=== PATIENT | male | born 1970 | race Caucasian/White ===

== ENCOUNTER 2017-10-11 11:23 | Emergency (ER) | payer MEDICARE, MEDICAID ==
[2017-10-11] MEDS: KETOROLAC 60 MG/2 ML INJ. IM (12:37)
== END 2017-10-11 13:27 | disposition home or self-care (01) ==
LOC: ER 11:23
DX: S32.018A Other fracture of first lumbar vertebra, initial encounter for closed fracture (principal); S32.029A Unspecified fracture of second lumbar vertebra, initial encounter for closed fracture; M54.6 Pain in thoracic spine; I10 Essential (primary) hypertension; F20.9 Schizophrenia, unspecified; W18.39XA Other fall on same level, initial encounter; Y93.89 Activity, other specified; Y99.8 Other external cause status; Y92.89 Other specified places as the place of occurrence of the external cause
CPT/HCPCS: 72128; 72131; 96372; 99284-25; J1885

== ENCOUNTER 2018-08-31 21:28 | Inpatient (IN) | payer MEDICARE, MEDICAID ==
[~2018-08-31] VITALS: Ht 185.4 cm; Wt 103.6 kg
[~2018-08-31 21:28] MED LIST: HYDR-3164 PO; IBUP-1007 PO; LIDODERM 5% TOP
[2018-08-31] MEDS ORDERED: IV NORMAL SALINE 500ML BAG 500 ML IV ONE (22:00)
[2018-08-31] MEDS ORDERED: LIDOCAINE 1%/EPI 1:100,000 20 ML VIAL. INJ ONE (22:00)
[2018-08-31 22:27] LABS: BASO % 0 % (0-3); EOS # 0.1 x10^3/uL (0.0-0.7); EOS % 1 % (0-3); HEMATOCRIT 41.1 % (39.0-53.0); HEMOGLOBIN 14.6 g/dL (13.0-17.5); LYMPH # 1.9 x10^3/uL (1.0-4.8); LYMPH % 23 % (24-48); MEAN CORPUSCULAR HEMOGLOBIN 33 pg (25-35); MEAN CORPUSCULAR HGB CONC 36 g/dL (31-37); MEAN CORPUSCULAR VOLUME 93 fL (79-100); MONO # 0.7 x10^3/uL (0.0-1.1); MONO % 9 % (0-9); NEUT # 5.5 x10^3uL (1.8-7.7); NEUT % 67 % (31-73); PLATELET COUNT 211 x10^3/uL (140-400); RED BLOOD COUNT 4.43 x10^6/uL (4.30-5.70); RED CELL DISTRIBUTION WIDTH 13.5 % (11.5-14.5); WHITE BLOOD COUNT 8.2 x10^3/uL (4.0-11.0)
[2018-08-31 22:34] LABS: CREATININE 1.2 mg/dL (0.7-1.3); GFR 64.1; POTASSIUM 3.6 mmol/L (3.5-5.1)
[2018-08-31 22:40] LABS: ALBUMIN 3.5 g/dL (3.4-5.0); ALBUMIN/GLOBULIN RATIO 0.9 (1.0-1.7); TOTAL BILIRUBIN 0.3 mg/dL (0.2-1.0); TOTAL PROTEIN 7.2 g/dL (6.4-8.2)
[2018-08-31 22:42] LABS: BILIRUBIN,URINE NEGATIVE (NEG); CLARITY,URINE CLEAR; COLOR,URINE YELLOW; NITRITE,URINE NEGATIVE (NEG); PH,URINE 5.5; PROTEIN,URINE NEGATIVE (NEG-TRACE); UROBILINOGEN,URINE 0.2 mg/dL (0.2 mg/dL)
[2018-08-31 22:48] LABS: BACTERIA,URINE 0 /HPF (0-FEW); RBC,URINE OCC /HPF (0-2)
[2018-08-31 22:49] LABS: SQUAMOUS EPITHELIAL CELL,UR FEW /LPF
--- NOTE | 2018-08-31 22:55 | RAD ---
CT scan of the head without contrast 08/31/2018 Clinical History: Fall with head pain. Technique: Unenhanced, contiguous, 5 mm axial sections were obtained through the head. One or more of the following individualized dose reduction techniques were utilized for this study: 1. Automated exposure control. 2. Adjustment of the mA and/or kV according to patient size. 3. Use of iterative reconstruction technique. Findings: There is generalized parenchymal atrophy. Areas of decreased attenuation are seen within the periventricular and subcortical white matter of both cerebral hemispheres consistent with areas of small vessel ischemic disease. No acute parenchymal abnormality is seen. No extra-axial fluid collection is noted. No skull fracture is seen. Impression: No acute intracranial abnormality is seen. CT scan of the cervical spine without contrast 08/31/2018 Clinical history: Neck pain post fall. Technique: Unenhanced, contiguous, 0.625 mm axial sections were obtained through the cervical spine. Axial, coronal and sagittal reconstructed images were obtained. One or more of the following individualized dose reduction techniques were utilized for this study: 1. Automated exposure control. 2. Adjustment of the mA and/or kV according to patient size. 3. Use of iterative reconstruction technique. Findings: Sagittal and coronal reconstructed images demonstrate slight reversal of normal cervical lordosis. Degenerative changes consisting of disc space narrowing, vertebral endplate sclerosis and minimal to mild anterior vertebral body osteophyte formation are seen involving mid and lower cervical disc spaces. No fracture or subluxation cervical vertebrae seen. Degenerative changes are seen involving the uncovertebral and facet joints throughout the cervical disc spaces. Impression: No fracture or subluxation of the cervical vertebra is identified. Electronically signed by: Wayne Rodriguez MD (08/31/2018 10:51 PM) [facility]
--- NOTE | 2018-08-31 23:58 | PHYS DOC ---
Past Medical History Past Medical History: Depression, Hypertension, Schizophrenia Additional Past Medical Histor: PSORIASIS, INSOMNIA Past Surgical History: Other Additional Past Surgical Histo: DENTAL SX Alcohol Use: None Drug Use: None Adult General Chief Complaint Chief Complaint: SYNCOPE HPI HPI 48 y/o male presents to ER following a syncope episode. Patient reports he lives at an assisted living facility and he stood up and had episode where he became lightheaded and dizzy and passed out. Patient states he did wake up on the floor with a laceration to the top of his head. Patient is uncertain as to length of time that he was unconscious. On arrival to ER patient is alert and oriented with complaints of mild headache. Patient at this time is denying any dizziness. Patient denies nausea. Patient does report he has history of orthostatic hypotension. He reports he does believe he has had tetanus up-to-date within the past 5 years. Review of Systems Review of Systems Constitutional: Denies fever or chills [] Eyes: Denies change in visual acuity, redness, or eye pain [] HENT: Denies nasal congestion or sore throat [] Respiratory: Denies cough or shortness of breath [] Cardiovascular: No additional information not addressed in HPI [] GI: Denies abdominal pain, nausea, vomiting, bloody stools or diarrhea [] : Denies dysuria or hematuria [] Musculoskeletal: Denies back pain or joint pain [] Integument: Denies rash or skin lesions [] Neurologic: Denies headache, focal weakness or sensory changes [] Endocrine: Denies polyuria or polydipsia [] All other systems were reviewed and found to be within normal limits, except as documented in this note. Current Medications Current Medications Current Medications Medications (Trade) Dose Ordered Sig/Jordan Start Time Stop Time Status Last Admin Dose Admin Lidocaine/ Epinephrine (LIDOCAINE 1%-EPI 1:100,000 Multi-Dose) 20 ml 1X ONCE 08/31/18 22:00 08/31/18 22:01 DC Sodium Chloride 500 ml @ 500 mls/hr 1X ONCE 08/31/18 22:00 08/31/18 22:59 DC 08/31/18 22:30 500 MLS/HR Allergies Allergies Allergies Coded Allergies Type Severity Reaction Last Updated Verified No Known Drug Allergies 10/11/17 No Physical Exam Physical Exam Constitutional: Well developed, well nourished, no acute distress, non-toxic appearance. [] HENT: Normocephalic, atraumatic, bilateral external ears normal, oropharynx moist, no oral exudates, nose normal. [] Eyes: PERRLA, EOMI, conjunctiva normal, no discharge. [] Neck: Normal range of motion, no tenderness, supple, no stridor. [] Cardiovascular:Heart rate regular rhythm, no murmur [] Lungs & Thorax: Bilateral breath sounds clear to auscultation [] Abdomen: Bowel sounds normal, soft, no tenderness, no masses, no pulsatile masses. [] Skin: Warm, dry, no erythema, no rash. [] Back: No tenderness, no CVA tenderness. [] Extremities: No tenderness, no cyanosis, no clubbing, ROM intact, no edema. [] Neurologic: Alert and oriented X 3, normal motor function, normal sensory function, no focal deficits noted. [] Psychologic: Affect normal, judgement normal, mood normal. [] Current Patient Data Vital Signs Vital Signs Date Time Temp Pulse Resp B/P (MAP) Pulse Ox O2 Delivery O2 Flow Rate FiO2 08/31/18 21:30 98.4 66 21 133/94 (107) 98 Room Air 98.4 Lab Values Laboratory Tests Test 08/31/18 22:15 08/31/18 22:20 White Blood Count 8.2 x10^3/uL (4.0-11.0) Red Blood Count 4.43 x10^6/uL (4.30-5.70) Hemoglobin 14.6 g/dL (13.0-17.5) Hematocrit 41.1 % (39.0-53.0) Mean Corpuscular Volume 93 fL (79-100) Mean Corpuscular Hemoglobin 33 pg (25-35) Mean Corpuscular Hemoglobin Concent 36 g/dL (31-37) Red Cell Distribution Width 13.5 % (11.5-14.5) Platelet Count 211 x10^3/uL (140-400) Neutrophils (%) (Auto) 67 % (31-73) Lymphocytes (%) (Auto) 23 % (24-48) L Monocytes (%) (Auto) 9 % (0-9) Eosinophils (%) (Auto) 1 % (0-3) Basophils (%) (Auto) 0 % (0-3) Neutrophils # (Auto) 5.5 x10^3uL (1.8-7.7) Lymphocytes # (Auto) 1.9 x10^3/uL (1.0-4.8) Monocytes # (Auto) 0.7 x10^3/uL (0.0-1.1) Eosinophils # (Auto) 0.1 x10^3/uL (0.0-0.7) Basophils # (Auto) 0.0 x10^3/uL (0.0-0.2) Sodium Level 140 mmol/L (136-145) Potassium Level 3.6 mmol/L (3.5-5.1) Chloride Level 103 mmol/L (98-107) Carbon Dioxide Level 28 mmol/L (21-32) Anion Gap 9 (6-14) Blood Urea Nitrogen 12 mg/dL (8-26) Creatinine 1.2 mg/dL (0.7-1.3) Estimated GFR (Cockcroft-Gault) 64.1 BUN/Creatinine Ratio 10 (6-20) Glucose Level 101 mg/dL (70-99) H Calcium Level 9.0 mg/dL (8.5-10.1) Total Bilirubin 0.3 mg/dL (0.2-1.0) Aspartate Amino Transferase (AST) 18 U/L (15-37) Alanine Aminotransferase (ALT) 31 U/L (16-63) Alkaline Phosphatase 113 U/L (46-116) Troponin I Quantitative < 0.017 ng/mL (0.000-0.055) Total Protein 7.2 g/dL (6.4-8.2) Albumin 3.5 g/dL (3.4-5.0) Albumin/Globulin Ratio 0.9 (1.0-1.7) L Urine Collection Type Unknown Urine Color Yellow Urine Clarity Clear Urine pH 5.5 Urine Specific [place] 1.015 Urine Protein Negative mg/dL (NEG-TRACE) Urine Glucose (UA) Negative mg/dL (NEG) Urine Ketones (Stick) Negative mg/dL (NEG) Urine Blood Negative (NEG) Urine Nitrite Negative (NEG) Urine Bilirubin Negative (NEG) Urine Urobilinogen Dipstick 0.2 mg/dL (0.2 mg/dL) Urine Leukocyte Esterase Trace (NEG) Urine RBC Occ /HPF (0-2) Urine WBC 5-10 /HPF (0-4) Urine Squamous Epithelial Cells Few /LPF Urine Bacteria 0 /HPF (0-FEW) Urine Mucus Mod /LPF Laboratory Tests 08/31/18 22:15 Laboratory Tests 08/31/18 22:15 EKG EKG EKG obtained 08/31/18 at [address] Heredia Sinus rhythm Rate 76 No STEMI Radiology/Procedures Radiology/Procedures PROCEDURE: CT HEAD AND CERVICAL SPINE WO CT scan of the head without contrast 08/31/2018 Clinical History: Fall with head pain. Technique: Unenhanced, contiguous, 5 mm axial sections were obtained through the head. One or more of the following individualized dose reduction techniques were utilized for this study: 1. Automated exposure control. 2. Adjustment of the mA and/or kV according to patient size. 3. Use of iterative reconstruction technique. Findings: There is generalized parenchymal atrophy. Areas of decreased attenuation are seen within the periventricular and subcortical white matter of both cerebral hemispheres consistent with areas of small vessel ischemic disease. No acute parenchymal abnormality is seen. No extra-axial fluid collection is noted. No skull fracture is seen. Impression: No acute intracranial abnormality is seen. CT scan of the cervical spine without contrast 08/31/2018 Clinical history: Neck pain post fall. Technique: Unenhanced, contiguous, 0.625 mm axial sections were obtained through the cervical spine. Axial, coronal and sagittal reconstructed images were obtained. One or more of the following individualized dose reduction techniques were utilized for this study: 1. Automated exposure control. 2. Adjustment of the mA and/or kV according to patient size. 3. Use of iterative reconstruction technique. Findings: Sagittal and coronal reconstructed images demonstrate slight reversal of normal cervical lordosis. Degenerative changes consisting of disc space narrowing, vertebral endplate sclerosis and minimal to mild anterior vertebral body osteophyte formation are seen involving mid and lower cervical disc spaces. No fracture or subluxation cervical vertebrae seen. Degenerative changes are seen involving the uncovertebral and facet joints throughout the cervical disc spaces. Impression: No fracture or subluxation of the cervical vertebra is identified. Electronically signed by: Wayne Rodriguez MD (08/31/2018 10:51 PM) [facility] DICTATED and SIGNED BY: WAYNE RODRIGUEZ MD DATE: 08/31/18 2247 Laceration Repair by ca: [id number] Anesthesia: 3 mL 1% lidocaine w/epi locally Location: Vertex crown of head vertical laceration Foreign body: None detected after copious irrigation and exploration Technique: #4 Carloz Complexity: No subcutaneous sutures/edge excision Post Closure Length: 5 cm Patient's bleeding was easily controlled in the department and there is no indication of anemia. No evidence of compartment syndrome, neurologic injury, vascular injury, open joint, tendon laceration, or foreign body. Patient is appropriate for outpatient follow up. 48 hour wound check. Scar minimization instructions given. Course & Med Decision Making Course & Med Decision Making Pertinent Labs and Imaging studies reviewed. (See chart for details) Pt was evaluated in the ER following a syncope episode at the assisted living facility he resides in. Patient had mild headache at time of arrival. Patient reports he did lose consciousness during syncope episode and woke on the floor. Patient had 5 cm on the vertex crown of his head- wound was thoroughly cleansed with no foreign bodies found and wound repair done with 4 carloz. Patient tolerated procedure well. Patient reports he does not have 24-hour assistance where he lives and so with syncope episode and head injury discussed admission and he is agreeable with this plan for further monitoring. Patient remains alert and oriented 3. Patient's head and C-spine CT were negative for acute findings. Patient has had no additional syncope episodes or complaints of dizziness while in the ER. Will admit to hospitalist services for further care and monitoring. Patient will be admitted to Med/Tele. Dragon Disclaimer Dragon Disclaimer This electronic medical record was generated, in whole or in part, using a voice recognition dictation system. Departure Departure Impression: Primary Impression: Syncope Additional Impression: Head injury consultation Disposition: ADMITTED INPATIENT Admitting Physician: Wali Talavera Condition: STABLE Referrals: KORY BAIRES (PCP) Problem Qualifiers MERISSA ZAFAR TELEVISION PRODUCTION CLERK Aug 31, 2018 23:58
[2018-09-01 00:15] VITALS: BP 126/82
[2018-09-01] MEDS ORDERED: LOPE2TAB27 PO (01:00)
[2018-09-01] MEDS ORDERED: ACETAMINOPHEN 325 MG TABLET. PO PRN ×2 (01:00→09:00)
[2018-09-01] MEDS ORDERED: THIO10CA2 PO (01:00)
[2018-09-01] MEDS ORDERED: ATOR40TA59 PO (01:00)
[2018-09-01] MEDS ORDERED: THIO5CAP2 PO (01:00)
[2018-09-01] MEDS ORDERED: LORA-434 PO (01:00)
[2018-09-01] MEDS ORDERED: KETO120S2 TP (01:00)
[2018-09-01] MEDS ORDERED: VENL150C PO (01:00)
[2018-09-01] MEDS ORDERED: MAGN400O7 PO (01:00)
[2018-09-01] MEDS ORDERED: ZOLP5TAB PO (01:00)
[2018-09-01] MEDS ORDERED: HYDR25CA PO (01:00)
[2018-09-01] MEDS ORDERED: ACET325T9 PO (01:00)
[2018-09-01] MEDS ORDERED: AMLO2.5T2 PO (01:00)
[2018-09-01 03:15] VITALS: BP 114/81
--- NOTE | 2018-09-01 06:28 | EKG ---
[facility] [address] [place] [address] Test Date: 2018-08-31 Test Time: 21:38:24 Pat Name: ERICKA TRISTAN Department: Room: Gender: Husbandry Person: : 1970 Requested By: MERISSA ZAFAR Order Number: [id number] Reading MD: Measurements Intervals [place] Rate: 76 P: 48 NE: 156 QRS: 57 QRSD: 98 T: 42 QT: 384 QTc: 436 Interpretive Statements SINUS RHYTHM NO SPECIFIC ECG ABNORMALITIES RI6.01 No previous ECG available for comparison
[2018-09-01 07:36] VITALS: BP 127/82
--- NOTE | 2018-09-01 08:07 | RAD ---
Chest radiograph 08/31/2018 9:47 PM INDICATION: Fall, syncope COMPARISON: None available TECHNIQUE: Portable upright frontal view of the chest is provided. FINDINGS: The cardiomediastinal silhouette is within normal limits. There are no pleural effusions. There is no pulmonary vascular congestion. There is no pneumothorax. The lungs are clear. No significant osseous abnormality is identified. IMPRESSION: No acute cardiopulmonary process. Electronically signed by: Sarah Gilman MD (09/01/2018 8:03 AM) [facility]
[2018-09-01] MEDS ORDERED: HYDROcodone/APAP 5/325MG 1 TAB TABLET PO PRN (09:00)
[2018-09-01] MEDS ORDERED: LIDOCAINE (700MG/PATCH) PATCH. TD PRN (09:00)
[2018-09-01] MEDS ORDERED: THIOTHIXENE 10 MG PO SCH (09:00)
[2018-09-01] MEDS ORDERED: LOPERAMIDE 2 MG CAPSULE PO PRN (09:15)
[2018-09-01] MEDS ORDERED: IBUPROFEN 600 MG TABLET. PO PRN (09:15)
[2018-09-01] MEDS ORDERED: hydrOXYzine PAMOATE 25 MG CAPSULE PO PRN (09:15)
[2018-09-01] MEDS ORDERED: MAGNESIUM HYDROXIDE 2,400 MG/30 ML ORAL.SUSP. PO SCH (10:00)
[2018-09-01] MEDS ORDERED: LORazepam 1 MG TABLET PO SCH (10:00)
[2018-09-01] MEDS: VENLAFAXINE 50 MG TABLET. PO SCH ×2 (10:14→15:40)
[2018-09-01 11:30] VITALS: BP_SYST 119; BP_SYST 125; BP_SYST 127; BP_DIAS 79; BP_DIAS 85; BP_DIAS 97
[2018-09-01] MEDS ORDERED: IBUPROFEN 200 MG TABLET. PO PRN (12:46)
--- NOTE | 2018-09-01 13:52 | PDOC1 ---
History and Physical Date of Admission Date of Admission DATE: 09/01/18 TIME: 13:45 Identification/Chief Complaint Chief Complaint Passed out in assisted living Source Source: Caregiver, Chart review, Patient History of Present Illness History of Present Illness 78-year-old male who is a long-term resident in assisted living, passed out while walking from his room to the bathroom. He was not straining, he was not eating. No known significant cardiac history including arrhythmias. He claims has happened before and was diagnosed with orthostatic hypotension. Blood pressure anywhere between 100 to 120s. Orthostatic first set is negative. He's feeling well and wants to go back to a L. I am okay with that. I did order echocardiogram most likely would be okay. If he doesn't want to wait for it that he can go back to a L with no change in meds except for me recommending to hold Norvasc 2.5 once a day especially with a history of orthostatic hypotension and syncope No arrhythmias overnight No chest pain. He did fall and hit the back of his head but was able to get up. There were no reports of seizure-like activity consults None PRoc; Echo can be done as OP if he wishes though Pt seen and examined, discussed with АНДРЕЙ Abdul Past Medical History Cardiovascular: HTN, Hyperlipidemia Past Surgical History Past Surgical History: No pertinent history Family History Family History: Family History Unknown Social History Smoke: No ALCOHOL: none Drugs: None Current Problem List Problem List Problems Medical Problems: (1) Head injury consultation Status: Acute (2) Syncope Status: Acute Current Medications Current Medications Current Medications Sodium Chloride 500 ml @ 500 mls/hr 1X ONCE IV Last administered on at 22:30; Start 08/31/18 at 22:00; Stop 08/31/18 at 22:59; Status DC Lidocaine/ Epinephrine (LIDOCAINE 1%-EPI 1:100,000 Multi-Dose) 20 ml 1X ONCE INJ Last administered on 08/31/18at 21:45; Start 08/31/18 at 22:00; Stop at 22:01; Status DC Acetaminophen (Tylenol) 650 mg PRN Q4HRS PRN PO MILD PAIN; Start 09/01/18 at 01 :00; Stop 09/02/18 at 00:59 Acetaminophen (Tylenol) 650 mg PRN Q6HRS PRN PO MILD PAIN; Start 09/01/18 at 09 :00 Atorvastatin Calcium (Lipitor) 40 mg HS PO ; Start 09/01/18 at 21:00 Acetaminophen/ Hydrocodone Bitart (Lortab 5/325) 1 tab PRN Q6HRS PRN PO MODERATE-SEVERE PAIN; Start 09/01/18 at 09:00 Lorazepam (Ativan) 1 mg BID PO Last administered on 09/01/18at 10:14; Start at 10:00 Magnesium Hydroxide (Milk Of Magnesia) 2,400 mg DAILY PO ; Start 09/01/18 at 10: 00 Zolpidem Tartrate (Ambien) 5 mg HS PO ; Start 09/01/18 at 21:00 Hydroxyzine Pamoate (Vistaril) 25 mg PRN Q6HRS PRN PO ANXIETY/AGITATION; Start 09/01/18 at 09:15 Ibuprofen (Motrin) 600 mg PRN Q6HRS PRN PO INFLAMMATION; Start 09/01/18 at 09: 15; Stop 09/01/18 at 12:46; Status DC Loperamide HCl (Imodium) 2 mg PRN Q15MIN PRN PO DIARRHEA; Start 09/01/18 at 09: 15 Non-Formulary Medication (Thiothixene ) 5 mg HS PO ; Start 09/01/18 at 21:00 Non-Formulary Medication (Thiothixene ) 10 mg DAILY PO ; Start 09/01/18 at 09:00 ; Stop 09/01/18 at 13:33; Status DC Venlafaxine HCl (Effexor) 100 mg TID PO Last administered on 09/01/18at 10:14; Start 09/01/18 at 10:00 Lidocaine (Lidoderm) 1 patch PRN DAILY PRN TD PAIN; Start 09/01/18 at 09:00 Ibuprofen (Motrin) 600 mg PRN Q6HRS PRN PO INFLAMMATION; Start 09/01/18 at 12: 46 Non-Formulary Medication (Thiothixene ) 10 mg DAILY PO ; Start 09/01/18 at 14:00 Active Scripts Active Ibuprofen 600 Mg Tablet 600 Mg PO PRN Q6HRS PRN take with food or milk [lidoderm 5%patch] 1 Patch TOP PRN Q12HRS PRN apply to area of pain, remove after 12 hours and can replace after 12 hours off. [place] 5-325 Tablet (Acetaminophen/Hydrocodone Bitart) 1 Each Tablet 1-2 Each PO PRN Q6HRS PRN as needed for pain Reported Vistaril (Hydroxyzine Pamoate) 25 Mg Capsule 25 Mg PO PRN Q4HRS PRN Tylenol (Acetaminophen) 325 Mg Tablet 650 Mg PO PRN Q6HRS PRN Thiothixene 5 Mg Capsule 5 Mg PO HS Thiothixene 10 Mg Capsule 10 Mg PO DAILY Norvasc (Amlodipine Besylate) 2.5 Mg Tablet 2.5 Mg PO DAILY Milk Of Magnesia (Magnesium Hydroxide) 400 Mg/5 Ml Oral.susp 30 Ml PO DAILY Loperamide (Loperamide Hcl) 2 Mg Tablet 2 Mg PO DAILY Ketoconazole 120 Ml Shampoo 120 Ml TP TWICE WEEKLY Effexor Xr (Venlafaxine Hcl) 150 Mg Cap.er.24h 300 Mg PO DAILY Atorvastatin Calcium 40 Mg Tablet 40 Mg PO HS Ativan (Lorazepam) 1 Mg Tablet 1 Mg PO BID Ambien (Zolpidem Tartrate) 5 Mg Tablet 5 Mg PO HS Allergies Allergies: Coded Allergies: No Known Drug Allergies (Unverified , 10/11/17) ROS Review of System As per history of present illness, the rest of ROS 14 point negative Physical Exam General: Alert, Oriented X3, Cooperative, No acute distress HEENT: Atraumatic, PERRLA, EOMI Lungs: Clear to auscultation, Normal air movement Heart: S1S2, RRR, no thrills, no rubs, no gallops Cardiovascular: S1, S2 Abdomen: Normal bowel sounds, Soft, No tenderness, No hepatosplenomegaly, No masses Male Genitals Exam: normal genitalia, normal prostate Rectal Exam: not examined PELVIC: Nml ext genitalia Extremities: No clubbing, No cyanosis, No edema, Normal pulses, No tenderness/ swelling Skin: No rashes, No breakdown, No significant lesion Neuro: Normal gait, Normal speech, Strength at 5/5 X4 ext, Normal tone, Sensation intact, Cranial nerves 3-12 NL, Reflexes 2+ Psych/Mental Status: Mental status NL, Mood NL Vitals Vitals Vital Signs Date Time Temp Pulse Resp B/P (MAP) Pulse Ox O2 Delivery O2 Flow Rate FiO2 09/01/18 11:30 108 125/97 (106) 09/01/18 11:30 98.8 18 95 Room Air 98.8 Labs Labs Laboratory Tests Test 08/31/18 22:15 08/31/18 22:20 09/01/18 03:55 09/01/18 07:23 White Blood Count 8.2 x10^3/uL (4.0-11.0) Red Blood Count 4.43 x10^6/uL (4.30-5.70) Hemoglobin 14.6 g/dL (13.0-17.5) Hematocrit 41.1 % (39.0-53.0) Mean Corpuscular Volume 93 fL (79-100) Mean Corpuscular Hemoglobin 33 pg (25-35) Mean Corpuscular Hemoglobin Concent 36 g/dL (31-37) Red Cell Distribution Width 13.5 % (11.5-14.5) Platelet Count 211 x10^3/uL (140-400) Neutrophils (%) (Auto) 67 % (31-73) Lymphocytes (%) (Auto) 23 % (24-48) Monocytes (%) (Auto) 9 % (0-9) Eosinophils (%) (Auto) 1 % (0-3) Basophils (%) (Auto) 0 % (0-3) Neutrophils # (Auto) 5.5 x10^3uL (1.8-7.7) Lymphocytes # (Auto) 1.9 x10^3/uL (1.0-4.8) Monocytes # (Auto) 0.7 x10^3/uL (0.0-1.1) Eosinophils # (Auto) 0.1 x10^3/uL (0.0-0.7) Basophils # (Auto) 0.0 x10^3/uL (0.0-0.2) Sodium Level 140 mmol/L (136-145) Potassium Level 3.6 mmol/L (3.5-5.1) Chloride Level 103 mmol/L (98-107) Carbon Dioxide Level 28 mmol/L (21-32) Anion Gap 9 (6-14) Blood Urea Nitrogen 12 mg/dL (8-26) Creatinine 1.2 mg/dL (0.7-1.3) Estimated GFR (Cockcroft-Gault) 64.1 BUN/Creatinine Ratio 10 (6-20) Glucose Level 101 mg/dL (70-99) Calcium Level 9.0 mg/dL (8.5-10.1) Total Bilirubin 0.3 mg/dL (0.2-1.0) Aspartate Amino Transf (AST/SGOT) 18 U/L (15-37) Alanine Aminotransferase (ALT/SGPT) 31 U/L (16-63) Alkaline Phosphatase 113 U/L (46-116) Troponin I Quantitative < 0.017 ng/mL (0.000-0.055) < 0.017 ng/mL (0.000-0.055) < 0.017 ng/mL (0.000-0.055) Total Protein 7.2 g/dL (6.4-8.2) Albumin 3.5 g/dL (3.4-5.0) Albumin/Globulin Ratio 0.9 (1.0-1.7) Urine Collection Type Unknown Urine Color Yellow Urine Clarity Clear Urine pH 5.5 Urine Specific [place] 1.015 Urine Protein Negative mg/dL (NEG-TRACE) Urine Glucose (UA) Negative mg/dL (NEG) Urine Ketones (Stick) Negative mg/dL (NEG) Urine Blood Negative (NEG) Urine Nitrite Negative (NEG) Urine Bilirubin Negative (NEG) Urine Urobilinogen Dipstick 0.2 mg/dL (0.2 mg/dL) Urine Leukocyte Esterase Trace (NEG) Urine RBC Occ /HPF (0-2) Urine WBC 5-10 /HPF (0-4) Urine Squamous Epithelial Cells Few /LPF Urine Bacteria 0 /HPF (0-FEW) Urine Mucus Mod /LPF Laboratory Tests Test 08/31/18 22:15 08/31/18 22:20 09/01/18 03:55 09/01/18 07:23 White Blood Count 8.2 x10^3/uL (4.0-11.0) Red Blood Count 4.43 x10^6/uL (4.30-5.70) Hemoglobin 14.6 g/dL (13.0-17.5) Hematocrit 41.1 % (39.0-53.0) Mean Corpuscular Volume 93 fL (79-100) Mean Corpuscular Hemoglobin 33 pg (25-35) Mean Corpuscular Hemoglobin Concent 36 g/dL (31-37) Red Cell Distribution Width 13.5 % (11.5-14.5) Platelet Count 211 x10^3/uL (140-400) Neutrophils (%) (Auto) 67 % (31-73) Lymphocytes (%) (Auto) 23 % (24-48) Monocytes (%) (Auto) 9 % (0-9) Eosinophils (%) (Auto) 1 % (0-3) Basophils (%) (Auto) 0 % (0-3) Neutrophils # (Auto) 5.5 x10^3uL (1.8-7.7) Lymphocytes # (Auto) 1.9 x10^3/uL (1.0-4.8) Monocytes # (Auto) 0.7 x10^3/uL (0.0-1.1) Eosinophils # (Auto) 0.1 x10^3/uL (0.0-0.7) Basophils # (Auto) 0.0 x10^3/uL (0.0-0.2) Sodium Level 140 mmol/L (136-145) Potassium Level 3.6 mmol/L (3.5-5.1) Chloride Level 103 mmol/L (98-107) Carbon Dioxide Level 28 mmol/L (21-32) Anion Gap 9 (6-14) Blood Urea Nitrogen 12 mg/dL (8-26) Creatinine 1.2 mg/dL (0.7-1.3) Estimated GFR (Cockcroft-Gault) 64.1 BUN/Creatinine Ratio 10 (6-20) Glucose Level 101 mg/dL (70-99) Calcium Level 9.0 mg/dL (8.5-10.1) Total Bilirubin 0.3 mg/dL (0.2-1.0) Aspartate Amino Transf (AST/SGOT) 18 U/L (15-37) Alanine Aminotransferase (ALT/SGPT) 31 U/L (16-63) Alkaline Phosphatase 113 U/L (46-116) Troponin I Quantitative < 0.017 ng/mL (0.000-0.055) < 0.017 ng/mL (0.000-0.055) < 0.017 ng/mL (0.000-0.055) Total Protein 7.2 g/dL (6.4-8.2) Albumin 3.5 g/dL (3.4-5.0) Albumin/Globulin Ratio 0.9 (1.0-1.7) Urine Collection Type Unknown Urine Color Yellow Urine Clarity Clear Urine pH 5.5 Urine Specific [place] 1.015 Urine Protein Negative mg/dL (NEG-TRACE) Urine Glucose (UA) Negative mg/dL (NEG) Urine Ketones (Stick) Negative mg/dL (NEG) Urine Blood Negative (NEG) Urine Nitrite Negative (NEG) Urine Bilirubin Negative (NEG) Urine Urobilinogen Dipstick 0.2 mg/dL (0.2 mg/dL) Urine Leukocyte Esterase Trace (NEG) Urine RBC Occ /HPF (0-2) Urine WBC 5-10 /HPF (0-4) Urine Squamous Epithelial Cells Few /LPF Urine Bacteria 0 /HPF (0-FEW) Urine Mucus Mod /LPF VTE Prophylaxis Ordered VTE Prophylaxis Devices: Yes VTE Pharmacological Prophylaxi: Yes Assessment/Plan Assessment/Plan Syncope, differentials include vasovagal/common faint-so far no evidence of arrhythmias, no seizure-like activity History of orthostatic hypotension-first set orthostatic is negative. [place] resident PLAN: I recommend holding Norvasc 2.5 I did recommend echo-unsure if he will stay for it Otherwise can go back to a L on discharge once echo done and is read as normal BRYAN MACKAY MD Sep 01, 2018 13:52
--- NOTE | 2018-09-01 13:54 | PDOC3 ---
Discharge Summary Visit Information Date of Admission: Aug 31, 2018 Date of Discharge: Sep 01, 2018 Admitting Diagnosis Comment: Syncope/differentials include, vasovagal-no evidence of arrhythmias or seizure- like activity [place] resident [place] Hx orthostatic hypotension Final Diagnosis Problems Medical Problems: (1) Head injury consultation Status: Acute (2) Syncope Status: Acute Brief Hospital Course Allergies Allergies Coded Allergies Type Severity Reaction Last Updated Verified No Known Drug Allergies 10/11/17 No Vital Signs Vital Signs Date Time Temp Pulse Resp B/P (MAP) Pulse Ox O2 Delivery O2 Flow Rate FiO2 09/01/18 11:30 108 125/97 (106) 09/01/18 11:30 98.8 18 95 Room Air 98.8 Lab Results Laboratory Tests Test 08/31/18 22:15 08/31/18 22:20 09/01/18 03:55 09/01/18 07:23 White Blood Count 8.2 x10^3/uL (4.0-11.0) Red Blood Count 4.43 x10^6/uL (4.30-5.70) Hemoglobin 14.6 g/dL (13.0-17.5) Hematocrit 41.1 % (39.0-53.0) Mean Corpuscular Volume 93 fL (79-100) Mean Corpuscular Hemoglobin 33 pg (25-35) Mean Corpuscular Hemoglobin Concent 36 g/dL (31-37) Red Cell Distribution Width 13.5 % (11.5-14.5) Platelet Count 211 x10^3/uL (140-400) Neutrophils (%) (Auto) 67 % (31-73) Lymphocytes (%) (Auto) 23 % (24-48) Monocytes (%) (Auto) 9 % (0-9) Eosinophils (%) (Auto) 1 % (0-3) Basophils (%) (Auto) 0 % (0-3) Neutrophils # (Auto) 5.5 x10^3uL (1.8-7.7) Lymphocytes # (Auto) 1.9 x10^3/uL (1.0-4.8) Monocytes # (Auto) 0.7 x10^3/uL (0.0-1.1) Eosinophils # (Auto) 0.1 x10^3/uL (0.0-0.7) Basophils # (Auto) 0.0 x10^3/uL (0.0-0.2) Sodium Level 140 mmol/L (136-145) Potassium Level 3.6 mmol/L (3.5-5.1) Chloride Level 103 mmol/L (98-107) Carbon Dioxide Level 28 mmol/L (21-32) Anion Gap 9 (6-14) Blood Urea Nitrogen 12 mg/dL (8-26) Creatinine 1.2 mg/dL (0.7-1.3) Estimated GFR (Cockcroft-Gault) 64.1 BUN/Creatinine Ratio 10 (6-20) Glucose Level 101 mg/dL (70-99) Calcium Level 9.0 mg/dL (8.5-10.1) Total Bilirubin 0.3 mg/dL (0.2-1.0) Aspartate Amino Transf (AST/SGOT) 18 U/L (15-37) Alanine Aminotransferase (ALT/SGPT) 31 U/L (16-63) Alkaline Phosphatase 113 U/L (46-116) Troponin I Quantitative < 0.017 ng/mL (0.000-0.055) < 0.017 ng/mL (0.000-0.055) < 0.017 ng/mL (0.000-0.055) Total Protein 7.2 g/dL (6.4-8.2) Albumin 3.5 g/dL (3.4-5.0) Albumin/Globulin Ratio 0.9 (1.0-1.7) Urine Collection Type Unknown Urine Color Yellow Urine Clarity Clear Urine pH 5.5 Urine Specific [place] 1.015 Urine Protein Negative mg/dL (NEG-TRACE) Urine Glucose (UA) Negative mg/dL (NEG) Urine Ketones (Stick) Negative mg/dL (NEG) Urine Blood Negative (NEG) Urine Nitrite Negative (NEG) Urine Bilirubin Negative (NEG) Urine Urobilinogen Dipstick 0.2 mg/dL (0.2 mg/dL) Urine Leukocyte Esterase Trace (NEG) Urine RBC Occ /HPF (0-2) Urine WBC 5-10 /HPF (0-4) Urine Squamous Epithelial Cells Few /LPF Urine Bacteria 0 /HPF (0-FEW) Urine Mucus Mod /LPF Laboratory Tests Test 08/31/18 22:15 08/31/18 22:20 09/01/18 03:55 09/01/18 07:23 White Blood Count 8.2 x10^3/uL (4.0-11.0) Red Blood Count 4.43 x10^6/uL (4.30-5.70) Hemoglobin 14.6 g/dL (13.0-17.5) Hematocrit 41.1 % (39.0-53.0) Mean Corpuscular Volume 93 fL (79-100) Mean Corpuscular Hemoglobin 33 pg (25-35) Mean Corpuscular Hemoglobin Concent 36 g/dL (31-37) Red Cell Distribution Width 13.5 % (11.5-14.5) Platelet Count 211 x10^3/uL (140-400) Neutrophils (%) (Auto) 67 % (31-73) Lymphocytes (%) (Auto) 23 % (24-48) Monocytes (%) (Auto) 9 % (0-9) Eosinophils (%) (Auto) 1 % (0-3) Basophils (%) (Auto) 0 % (0-3) Neutrophils # (Auto) 5.5 x10^3uL (1.8-7.7) Lymphocytes # (Auto) 1.9 x10^3/uL (1.0-4.8) Monocytes # (Auto) 0.7 x10^3/uL (0.0-1.1) Eosinophils # (Auto) 0.1 x10^3/uL (0.0-0.7) Basophils # (Auto) 0.0 x10^3/uL (0.0-0.2) Sodium Level 140 mmol/L (136-145) Potassium Level 3.6 mmol/L (3.5-5.1) Chloride Level 103 mmol/L (98-107) Carbon Dioxide Level 28 mmol/L (21-32) Anion Gap 9 (6-14) Blood Urea Nitrogen 12 mg/dL (8-26) Creatinine 1.2 mg/dL (0.7-1.3) Estimated GFR (Cockcroft-Gault) 64.1 BUN/Creatinine Ratio 10 (6-20) Glucose Level 101 mg/dL (70-99) Calcium Level 9.0 mg/dL (8.5-10.1) Total Bilirubin 0.3 mg/dL (0.2-1.0) Aspartate Amino Transf (AST/SGOT) 18 U/L (15-37) Alanine Aminotransferase (ALT/SGPT) 31 U/L (16-63) Alkaline Phosphatase 113 U/L (46-116) Troponin I Quantitative < 0.017 ng/mL (0.000-0.055) < 0.017 ng/mL (0.000-0.055) < 0.017 ng/mL (0.000-0.055) Total Protein 7.2 g/dL (6.4-8.2) Albumin 3.5 g/dL (3.4-5.0) Albumin/Globulin Ratio 0.9 (1.0-1.7) Urine Collection Type Unknown Urine Color Yellow Urine Clarity Clear Urine pH 5.5 Urine Specific [place] 1.015 Urine Protein Negative mg/dL (NEG-TRACE) Urine Glucose (UA) Negative mg/dL (NEG) Urine Ketones (Stick) Negative mg/dL (NEG) Urine Blood Negative (NEG) Urine Nitrite Negative (NEG) Urine Bilirubin Negative (NEG) Urine Urobilinogen Dipstick 0.2 mg/dL (0.2 mg/dL) Urine Leukocyte Esterase Trace (NEG) Urine RBC Occ /HPF (0-2) Urine WBC 5-10 /HPF (0-4) Urine Squamous Epithelial Cells Few /LPF Urine Bacteria 0 /HPF (0-FEW) Urine Mucus Mod /LPF Brief Hospital Course Mr. Michael is a 48 old white male, [place] resident, admitted for syncope. Differential includes vasovagal. No evidence of arrhythmia or seizure. Does have history of orthostatic hypotension. On Norvasc 2.5. First set orthostatic is negative. I did recommend to stop Norvasc. Will order an echo if okay to go back to [place] today Observation stay consults: none Discharge Information Condition at Discharge: Improved, Stable Disposition/Orders: Other ([place]) Scheduled Amlodipine Besylate (Norvasc) 2.5 Mg Tablet, 2.5 MG PO DAILY for htn, (Reported) Entered as Reported by: DIXON TORIBIO on Last Action: HELD on 09/01/18857 by BRYAN MACKAY Atorvastatin Calcium (Atorvastatin Calcium) 40 Mg Tablet, 40 MG PO HS for FOR CHOLESTEROL, #30 Ref 0 (Reported) Entered as Reported by: DIXON TORIBIO on Last Action: Continued on 09/01/18857 by BRYAN MACKAY Ketoconazole (Ketoconazole) 120 Ml Shampoo, 120 ML TP TWICE WEEKLY for psoriasis , (Reported) Entered as Reported by: DIXON TORIBIO on Last Action: New Order on by DIXON TORIBIO Loperamide Hcl (Loperamide) 2 Mg Tablet, 2 MG PO DAILY for diarrhea, (Reported) Entered as Reported by: DIXON TORIBIO on Last Action: Converted on 09/01/18857 by BRYAN MACKAY Lorazepam (Ativan) 1 Mg Tablet, 1 MG PO BID for schizoaffective disorder, ( Reported) Entered as Reported by: DIXON TORIBIO on Last Action: Continued on 09/01/18857 by BRYAN MACKAY Magnesium Hydroxide (Milk Of Magnesia) 400 Mg/5 Ml Oral.susp, 30 ML PO DAILY for gerd, (Reported) Entered as Reported by: DIXON TORIBIO on Last Action: Continued on 09/01/18857 by BRYAN MACKAY Thiothixene (Thiothixene) 10 Mg Capsule, 10 MG PO DAILY for schizoaffective disorder, (Reported) Entered as Reported by: DIXON TORIBIO on Last Action: Converted on 09/01/18857 by BRYAN MACKAY Thiothixene (Thiothixene) 5 Mg Capsule, 5 MG PO HS for schizoaffective disorder, (Reported) Entered as Reported by: DIXON TORIBIO on Last Action: Converted on 09/01/18857 by BRYAN MACKAY Venlafaxine Hcl (Effexor Xr) 150 Mg Cap.er.24h, 300 MG PO DAILY for depression, (Reported) Entered as Reported by: DIXON TORIBIO on Last Action: Converted on 09/01/18857 by BRYAN MACKAY Zolpidem Tartrate (Ambien) 5 Mg Tablet, 5 MG PO HS for insomnia, Ref 0 (Reported ) Entered as Reported by: DIXON TORIBIO on Last Action: Continued on 09/01/18857 by BRYAN MACKAY Scheduled PRN Acetaminophen (Tylenol) 325 Mg Tablet, 650 MG PO PRN Q6HRS PRN for PAIN, ( Reported) Entered as Reported by: DIXONMISTY TORIBIO on Last Action: Continued on 09/01/18857 by BRYAN MACKAY Hydrocodone/Apap 5-325 ([place] 5-325 Tablet) 1 Each Tablet, 1-2 EACH PO PRN Q6HRS PRN for PAIN, #15 as needed for pain Prescribed by: DAGO MADRID MD on 10/11/171255 Last Action: Continued on 09/01/18857 by BRYAN MACKAY Hydroxyzine Pamoate (Vistaril) 25 Mg Capsule, 25 MG PO PRN Q4HRS PRN for ANXIETY / AGITATION, (Reported) Entered as Reported by: DIXON TORIBIO on Last Action: Converted on 09/01/18857 by BRYAN MACKAY Ibuprofen (Ibuprofen) 600 Mg Tablet, 600 MG PO PRN Q6HRS PRN for PAIN, #20 take with food or milk Prescribed by: DGAO MADRID MD on 10/11/171255 Last Action: Converted on 09/01/18857 by BRYAN MACKAY [lidoderm 5%patch] , 1 PATCH TOP PRN Q12HRS PRN for PAIN, #5 apply to area of pain, remove after 12 hours and can replace after 12 hours off. Prescribed by: DAGO MADRID MD on 10/11/171255 Last Action: Converted on 09/01/18857 by BRYAN MCKEE MD Sep 01, 2018 13:54
--- NOTE | 2018-09-01 15:28 | DISCH ---
DISCHARGE DISCHARGE INFORMATION: DISCHARGE DATE: Sep 01, 2018 FINAL DIAGNOSIS Problems Medical Problems: (1) Head injury consultation Status: Acute (2) Syncope Status: Acute CONDITION ON DISCHARGE: Stable CODE STATUS: Code Status: Full [facility]: SNF STAY <30 DAYS: Yes HOSPICE: HOSPICE: No HOSPICE EVAL & TREAT: No LTAC: ADMIT TO LTAC: No POST DISCHARGE ORDERS: ACTIVITY ORDERS: Resume previous activity DIET AFTER DISCHARGE: Regular CHECKS AFTER DISCHARGE: CHECKS AFTER DISCHARGE: Check blood press - daily TREATMENT/EQUIPMENT ORDERS: ADAPTIVE EQUIPMENT NEEDED: None Physical Therapy For: Evalulation/Treatment Occupational Therapy For: Evaluation/Treatment DISCHARGE MEDICATIONS: Home Meds Active Scripts Ibuprofen (IBUPROFEN) 600 Mg Tablet, 600 MG PO PRN Q6HRS PRN for PAIN, #20 TAB take with food or milk Prov:DAGO MADRID MD 10/11/17 [lidoderm 5%patch] No Conflict Check, 1 PATCH TOP PRN Q12HRS PRN for PAIN, #5 apply to area of pain, remove after 12 hours and can replace after 12 hours off. Prov:DAGO MADRID MD 10/11/17 Hydrocodone/Apap 5-325 (NORCO 5-325 TABLET) 1 Each Tablet, 1-2 EACH PO PRN Q6HRS PRN for PAIN, #15 as needed for pain Prov:DAGO MADRID MD 10/11/17 Reported Medications Hydroxyzine Pamoate (VISTARIL) 25 Mg Capsule, 25 MG PO PRN Q4HRS PRN for ANXIETY / AGITATION, CAP 09/01/18 Acetaminophen (TYLENOL) 325 Mg Tablet, 650 MG PO PRN Q6HRS PRN for PAIN, TAB 09/01/18 Thiothixene (THIOTHIXENE) 5 Mg Capsule, 5 MG PO HS for schizoaffective disorder , CAP 09/01/18 Thiothixene (THIOTHIXENE) 10 Mg Capsule, 10 MG PO DAILY for schizoaffective disorder, CAP 09/01/18 Amlodipine Besylate (NORVASC) 2.5 Mg Tablet, 2.5 MG PO DAILY for htn, TAB 09/01/18 Magnesium Hydroxide (MILK OF MAGNESIA) 400 Mg/5 Ml Oral.susp, 30 ML PO DAILY for gerd, MISC 09/01/18 Loperamide Hcl (LOPERAMIDE) 2 Mg Tablet, 2 MG PO DAILY for diarrhea, TAB 09/01/18 Ketoconazole (KETOCONAZOLE) 120 Ml Shampoo, 120 ML TP TWICE WEEKLY for psoriasis , EACH 09/01/18 Venlafaxine Hcl (EFFEXOR XR) 150 Mg Cap.er.24h, 300 MG PO DAILY for depression, CAP.SR 09/01/18 Atorvastatin Calcium (ATORVASTATIN CALCIUM) 40 Mg Tablet, 40 MG PO HS for FOR CHOLESTEROL, #30 TAB 0 Refills 09/01/18 Lorazepam (ATIVAN) 1 Mg Tablet, 1 MG PO BID for schizoaffective disorder, TAB 09/01/18 Zolpidem Tartrate (AMBIEN) 5 Mg Tablet, 5 MG PO HS for insomnia, TAB 0 Refills 09/01/18 BRYAN MACKAY MD Sep 01, 2018 15:28
[2018-09-01 15:34] VITALS: BP 130/86
--- NOTE | 2018-09-01 15:46 | CARD ---
MR#: [id number] Date of Study: 09/01/2018 Ordering Physician: BRYAN MACKAY, Referring Physician: CALI FRANCO, Tech: Salome Aldridge APPROVED REPORT EXAM: Two-dimensional and M-mode echocardiogram with Doppler and color Doppler. Other Information Quality : GoodHR: 83bpm INDICATION Syncope RISK FACTORS Hypertension Hyperlipidemia 2D DIMENSIONS RVDd2.8 (2.9-3.5cm)Left Atrium(2D)3.2 (1.6-4.0cm) IVSd1.3 (0.7-1.1cm)Aortic Root(2D)3.3 (2.0-3.7cm) LVDd4.5 (3.9-5.9cm)LVOT Diameter2.3 (1.8-2.4cm) PWd1.3 (0.7-1.1cm)LVDs3.3 (2.5-4.0cm) FS (%) 27.3 %SV49.7 ml LVEF(%)53.2 (>50%) Aortic Valve AoV Peak German.117.5cm/sAoV VTI18.4cm AO Peak GR.5.5mmHgLVOT Peak German.84.3cm/s LVOT VTI 17.12cmAO Mean GR.3mmHg LUIS ENRIQUE (VMAX)2.48bl7RRL (VTI)3.98cm2 Mitral Valve MV E Ztmntcqt27.5cm/sMV DECEL HBWS336gq MV A Zscgcawv86.9cm/sMV ZEJ856pu E/A Ratio0.8MVA (PHT)1.65cm2 TDI E/Lateral E'5.8E/Medial E'7.7 Pulmonary Valve PV Peak Nvqxonnw584.6cm/sPV Peak Grad.5mmHg Tricuspid Valve TR P. Bfrsepuo037tm/sRAP NHSOZMMI6rgIs TR Peak Gr.45pnBhTPPB54fsEy Pulmonary Vein S1 Glpvanvv00.1cm/sD2 Yfmcdzgy09.5cm/s PVa ffcqavri414tbln LEFT VENTRICLE The left ventricle is normal size. There is mild concentric left ventricular hypertrophy. The left ve ntricular systolic function is normal and the ejection fraction is within normal range. LV ejection f raction is 55-60%. There is normal LV segmental wall motion. Transmitral Doppler flow pattern is Grad e I-abnormal relaxation pattern. RIGHT VENTRICLE The right ventricle is normal size. There is normal right ventricular wall thickness. The right ventr icular systolic function is normal. ATRIA The left atrium size is normal. The right atrium size is normal. The interatrial septum is intact wit h no evidence for an atrial septal defect or patent foramen ovale as noted on 2-D or Doppler imaging. AORTIC VALVE The aortic valve is normal in structure and function. Doppler and Color Flow revealed no significant aortic regurgitation. There is no significant aortic valvular stenosis. Calculated aortic valve area is 3.98 cm2 with maximum pressure gradient of 6 mmHg and mean pressure gradient of 3 mmHg. MITRAL VALVE The mitral valve is thickened but opens well. There is no evidence of mitral valve prolapse. There is no mitral valve stenosis. Doppler and Color-flow revealed trace mitral regurgitation. TRICUSPID VALVE The tricuspid valve is not well visualized. Doppler and Color Flow revealed trace tricuspid regurgita tion with an estimated PAP of 24 mmHg. There is no tricuspid valve stenosis. PULMONIC VALVE The pulmonary valve is normal in structure and function. GREAT VESSELS The aortic root is normal in size. The IVC is normal in size and collapses >50% with inspiration. PERICARDIAL EFFUSION There is no evidence of significant pericardial effusion. Critical Notification Critical Value: No <Conclusion> The left ventricle is normal size. The left ventricular systolic function is normal and the ejection fraction is within normal range. LV ejection fraction is 55-60%. There is mild concentric left ventricular hypertrophy. There is no significant aortic valvular stenosis. Calculated aortic valve area is 3.98 cm2 with maximum pressure gradient of 6 mmHg and mean pressure g radient of 3 mmHg. Doppler and Color Flow revealed no significant aortic regurgitation. Doppler and Color-flow revealed trace mitral regurgitation. Doppler and Color Flow revealed trace tricuspid regurgitation with an estimated PAP of 24 mmHg. Signed by : Jason Chaidez MD Electronically Approved : 09/01/2018 15:44:00
[2018-09-01] MEDS ORDERED: THIOTHIXENE 5 MG ONE (16:00)
--- NOTE | 2018-09-01 17:27 | NUR ---
Patient discharged back to [facility]. This RN gave an updated report to Greta CHIANG. This included our hospitalist's recommendation to d/c norvasc and to remove head carlos eduardo in 7-10 days. All questions and concerns answered. Patient is agreeable to go back to facility. Patient is alert and stable upon time of discharge. IV line and tele discontinued. All belongings with patient. Currently awaiting for transport personnel to [facility] patient.
--- NOTE | 2018-09-01 17:51 | NUR ---
Patient successfully taken down to transport van, accompanied by Rose Mary WONG
[2018-09-01] MEDS ORDERED: ZOLPIDEM 5 MG TABLET. PO SCH (21:00)
[2018-09-01] MEDS ORDERED: ATORVASTATIN CALCIUM 40 MG TABLET. PO SCH (21:00)
== END 2018-09-01 17:45 | DRG 605 ==
LOC: ER 21:28 → 6 SOUTH 23:30
PROVIDERS: ADMIT Family Medicine; ATTEND Family Medicine
DX: S01.01XA Laceration without foreign body of scalp, initial encounter (principal); E78.5 Hyperlipidemia, unspecified; F20.9 Schizophrenia, unspecified; I10 Essential (primary) hypertension; F32.9 Major depressive disorder, single episode, unspecified; G47.00 Insomnia, unspecified; R55 Syncope and collapse; L40.9 Psoriasis, unspecified; W18.39XA Other fall on same level, initial encounter; Y93.89 Activity, other specified; Y92.89 Other specified places as the place of occurrence of the external cause; Y99.8 Other external cause status
CPT/HCPCS: 12002; 36415; 70450; 71045; 72125; 80053; 81001; 84484; 85025; 87086; 87641; 93005; 93306; 96360; J3490; J7040; 99285-25

== ENCOUNTER 2020-10-26 02:53 | Observation (INO) | payer MEDICARE, MEDICAID ==
[~2020-10-26] VITALS: Ht 182.9 cm; Wt 97.9 kg
[~2020-10-26 02:53] MED LIST changes: +ACET325T9 PO; +AMLO2.5T2 PO; +ATOR40TA59 PO; +HYDR25CA PO; +KETO120S4 TP; +LOPE2TAB27 PO; +LORA-434 PO; +MAGN400O7 PO; +THIO10CA2 PO; +THIO5CAP2 PO; +VENL150C PO; +ZOLP5TAB PO
--- NOTE | 2020-10-26 03:22 | PHYS DOC ---
Past Medical History Past Medical History: Depression, Hypertension, Schizophrenia Additional Past Medical Histor: PSORIASIS, INSOMNIA Past Surgical History: Other Additional Past Surgical Histo: DENTAL SX Smoking Status: Never Smoker Alcohol Use: None Drug Use: None General Adult EDM: Chief Complaint: CHEST PAIN HPI: HPI: Patient is a 50-year-old male with history of schizoaffective disorder, hypothyroidism, seizures, hypertension who presents by EMS for chest pain. Patient lives in nursing facility. He reports he was sitting watching TV when he developed pain in the left side of his chest at 10 PM on 25 October. He reports it is a soreness but then has sharp intermittent pains. He reports he gets worse when he takes a deep breath. He has never had anything like this in the past. He denies any cardiac or pulmonary history. He is not a smoker. He denies nausea vomiting fever chills cough shortness of breath numbness weakness abdominal pain. Patient does not think he has any significant cardiac history in his family. Review of Systems: Review of Systems: Review of Systems: Constitutional: Denies fever or chills Eyes: Denies redness or eye pain HENT: Denies nasal congestion or sore throat Respiratory: Denies cough or shortness of breath Cardiovascular: Deniesr palpitations GI: denies abdominal pain and nausea, denies vomiting or diarrhea : Denies dysuria or hematuria Musculoskeletal: Denies back pain or joint pain Integument: Denies rash or skin lesions Neurologic: Denies headache, focal weakness or sensory changes Heart Score: C/O Chest Pain: Yes HEART Score for Chest Pain: HEART Score for Chest Pain Response (Comments) Value History Moderately Suspicious 1 ECG Normal 0 Age >45 - < 65 1 Risk Factors 1 or 2 Risk Factors 1 Troponin < Normal Limit 0 Total 3 Risk Factors: Risk Factors: DM, Current or recent (<one month) smoker, HTN, HLP, family history of CAD, obesity. Risk Scores: Score 0 - 3: 2.5% MACE over next 6 weeks - Discharge Home Score 4 - 6: 20.3% MACE over next 6 weeks - Admit for Clinical Observation Score 7 - 10: 72.7% MACE over next 6 weeks - Early Invasive Strategies Current Medications: Current Medications Medications (Trade) Dose Ordered Sig/Jordan Start Time Stop Time Status Last Admin Dose Admin Aspirin (Aspirin Chewable) 324 mg 1X ONCE 10/26/20 03:30 10/26/20 03:31 Allergies: Allergies: Allergies Coded Allergies Type Severity Reaction Last Updated Verified No Known Drug Allergies 10/11/17 No Physical Exam: PE: *GENERAL APPEARANCE: Awake and alert. Cooperative. No acute distress. Non toxic appearing. HEAD: Normocephalic. Atraumatic. EYES: EOM's grossly intact. Sclera anicteric. Conjunctiva clear ENT:. Airway patent. Mucous membranes moist. No trismus. Tolerating secretions. NECK: Supple. Trachea midline. HEART: Regular rate and rhythm. Radial pulses 2+. Good capillary refill. LUNGS: Respirations unlabored. Clear to auscultation bilaterally. No rales, rhonchi, wheezing or retractions. ABDOMEN: Soft. Non-tender. No guarding or rebound. No CVA tenderness. No palpable or pulsatile mass. EXTREMITIES: No acute deformities. No edema, erythema or calf tenderness. SKIN: Warm and dry. No rash. NEUROLOGICAL: Alert and oriented x3. No gross neurological deficits. Moves all 4 extremities spontaneously. PSYCHIATRIC: Normal mood. EKG: EKG: EKG interpretation shows normal sinus rhythm ventricular rate of 67 bpm. KY interval 174 ms. QRS duration 92 ms. QTc [address] segment elevatio ns. Appears similar to previous EKG on September 10, 2018. Repeat EKG shows normal sinus rhythm ventricular rate of 64 bpm. KY interval 150 ms. QRS duration 94 ms. QTc [address] segment changes. Radiology/Procedures: Radiology/Procedures: []PATIENT: TIRSO TRISTANOUNT: [id number]#: [id number] : 1970 LOCATION: ER AGE: 50 SEX: M EXAM STATUS: REG ER ORD. PHYSICIAN: VENECIA RODRIGUEZ DO REASON: chest pain PROCEDURE: PORTABLE CHEST 1V Chest AP portable at 0354: Reason for examination: Chest pain. Comparison is made to previous study dated 08/31/2018. The heart size is normal. Mediastinum is unremarkable. Lung robin are clear. No acute bony abnormalities are seen. Impression: No acute cardiopulmonary disease. Electronically signed by: Latanya Mueller MD (10/26/2020 5:27 AM) [facility] DICTATED and SIGNED BY: LATANYA MUELLER MD DATE: 10/26/20 [id number] Course & Med Decision Making: Course & Med Decision Making MDM: 50 yo M presents to the emergency department for chest pain that started at 10pm yesterday. Patient arrived by EMS. Upon arrival to emergency department patient's vital signs stable. EKG showed no acute ST segment elevations. Troponin and D-dimer negative. Chest x-ray shows no acute cardiopulmonary disease. Patient was given dose of aspirin. Given dose of morphine. At this time based on patient's symptoms and findings will admit to the hospital for further observation and evaluation. Spoke with patient. Agreeable to admiss ion. They are aware of all labs and imaging. All questions answered and patient stable at time of admission. Dragon Disclaimer: Dragon Disclaimer: This electronic medical record was generated, in whole or in part, using a voice recognition dictation system. I have spoken to the patient and/or caregivers. I have explained the patient's condition, diagnoses and treatment plan based on the information available to me at this time. I have answered the patient's and/or caregiver's questions and addressed my concerns. The patient and/or caregivers has a good understanding of the patient's diagnosis, condition and treatment plan as can be expected at this point. The patient has been stabilized within the capability of the [facility] department. The patient will be transported for further care and management or will be moved to an observation or inpatient service. I have communicated with the staff or medical practitioner taking over this patient's care. Departure Departure Impression: Primary Impression: Chest pain Disposition: ADMITTED INPT THIS HOSP (Admitted to Dr. Muhammad at 0430. Spoke with her at 0530. Agrees with plan. Will see the patient. Patient stable at time of admission.) Referrals: KORY BAIRES (PCP) VENECIA RODRIGUEZ DO Oct 26, 2020 03:22
[2020-10-26] MEDS ORDERED: ASPIRIN CHEWABLE 81 MG TABLET. PO ONE (03:30)
[2020-10-26 03:32] LABS: BASO # 0.1 x10^3/uL (0.0-0.2); BASO % 1 % (0-3); EOS # 0.1 x10^3/uL (0.0-0.7); EOS % 1 % (0-3); HEMATOCRIT 43.9 % (39.0-53.0); HEMOGLOBIN 14.9 g/dL (13.0-17.5); LYMPH # 2.6 x10^3/uL (1.0-4.8); LYMPH % 25 % (24-48); MEAN CORPUSCULAR HEMOGLOBIN 32 pg (25-35); MEAN CORPUSCULAR HGB CONC 34 g/dL (31-37); MEAN CORPUSCULAR VOLUME 94 fL (79-100); MONO # 0.8 x10^3/uL (0.0-1.1); MONO % 8 % (0-9); NEUT # 6.7 x10^3/uL (1.8-7.7); NEUT % 65 % (31-73); PLATELET COUNT 238 x10^3/uL (140-400); RED BLOOD COUNT 4.66 x10^6/uL (4.30-5.70); RED CELL DISTRIBUTION WIDTH 13.6 % (11.5-14.5); WHITE BLOOD COUNT 10.3 x10^3/uL (4.0-11.0)
[2020-10-26 03:40] LABS: CALCIUM 8.9 mg/dL (8.5-10.1); CREATININE 1.5 mg/dL (0.7-1.3); GFR 49.1; POTASSIUM 4.1 mmol/L (3.5-5.1)
[2020-10-26 03:45] LABS: ALBUMIN 3.7 g/dL (3.4-5.0); ALBUMIN/GLOBULIN RATIO 1.1 (1.0-1.7); TOTAL BILIRUBIN 0.5 mg/dL (0.2-1.0); TOTAL PROTEIN 7.2 g/dL (6.4-8.2)
--- NOTE | 2020-10-26 03:56 | EKG ---
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
--- NOTE | 2020-10-26 05:29 | RAD ---
Chest AP portable at 0354: Reason for examination: Chest pain. Comparison is made to previous study dated 08/31/2018. The heart size is normal. Mediastinum is unremarkable. Lung robin are clear. No acute bony abnormali ties are seen. Impression: No acute cardiopulmonary disease. Electronically signed by: Vicki Montero MD (10/26/2020 5:27 AM) JARON
[2020-10-26] MEDS ORDERED: MORPHINE SULFATE 2 MG/ML VIAL. IM ONE (06:00)
[2020-10-26 06:05] VITALS: BP 83/63
--- NOTE | 2020-10-26 06:22 | EKG ---
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
[2020-10-26] MEDS ORDERED: BUSP5TAB PO (06:23)
[2020-10-26] MEDS ORDERED: LEVO25TA4 PO (06:23)
[2020-10-26] MEDS ORDERED: DULO30CA2 PO (06:23)
[2020-10-26] MEDS ORDERED: LURA60TA PO (06:23)
[2020-10-26] MEDS ORDERED: LISI10TA16 PO (06:23)
[2020-10-26] MEDS ORDERED: TRAZ-123 PO (06:23)
[2020-10-26] MEDS ORDERED: POLY17PO29 PO (06:23)
[2020-10-26] MEDS ORDERED: BENZ0.5T32 PO (06:23)
[2020-10-26] MEDS ORDERED: LIDO700A21 TP (06:23)
[2020-10-26] MEDS ORDERED: LITH300T30 PO (06:23)
[2020-10-26] MEDS ORDERED: LURA20TA PO (06:23)
[2020-10-26] MEDS ORDERED: GUAI400T78 PO (06:23)
[2020-10-26] MEDS ORDERED: MAG-115 PO (06:23)
[2020-10-26] MEDS ORDERED: LORA-434 PO (06:23)
--- NOTE | 2020-10-26 09:59 | PDOC2 ---
KRISTIN SILVA SIGNAL FITTER 10/26/20 0959: CARDIAC CONSULT DATE OF CONSULT Date of Consult DATE: 10/26/20 TIME: 09:53 REASON FOR CONSULT Reason for Consult: Chest pain REFERRING PHYSICIAN Referring Physician: Dr. Hooks SOURCE Source: Chart review, Patient HISTORY OF PRESENT ILLNESS HISTORY OF PRESENT ILLNESS This is a 50 yo male who presented from nursing facility secondary to chest pain. Patient reports pain began last night about 10:30pm while watching television. Is located in his left chest. No associated dizziness, diaphoresis, shortness of breath, or nausea/vomiting. Pain in worse with deep breathing, a pplying pressure to left chest, and with ceratin movement. Describes pain as sharp in nature. No previous history of heart disease. PAST MEDICAL HISTORY Cardiovascular: HTN, Hyperlipidemia GI: GERD Psych: Anxiety, Depression, Other (schizoaffective disorder ) Endocrine: Hypothyroidism PAST SURGICAL HISTORY Past Surgical History: No pertinent history FAMILY HISTORY Family History: Stroke (father ) SOCIAL HISTORY Smoke: No ALCOHOL: none Drugs: None Lives: Shelter (Psych facility ) CURRENT MEDICATIONS CURRENT MEDICATIONS Current Medications Medications (Trade) Dose Ordered Sig/Jordan Route PRN Reason Start Time Stop Time Status Last Admin Dose Admin Aspirin (Aspirin Chewable) 324 mg 1X ONCE PO 10/26/20 03:30 10/26/20 03:31 DC 10/26/20 03:58 Morphine Sulfate (Morphine Sulfate) 2 mg 1X ONCE IM 10/26/20 06:00 10/26/20 06:01 DC 10/26/20 06:55 ALLERGIES ALLERGIES: Coded Allergies: No Known Drug Allergies (Unverified , 10/11/17) ROS Review of System 14 point ROS conducted with pertinent positives noted above in HPI PHYSICAL EXAM General: Alert, Oriented X3, Cooperative, No acute distress HEENT: Atraumatic Lungs: Clear to auscultation Heart: Regular rate, Other (left chest tenderness on palpation ) Abdomen: Soft Extremities: No edema, Normal pulses Skin: No significant lesion Neuro: Normal speech, Sensation intact Psych/Mental Status: Mental status NL, Other (flat affect ) MUSCULOSKELETAL: No deformity VITALS/I&O VITALS/I&O: Vital Signs Date Time Temp Pulse Resp B/P (MAP) Pulse Ox O2 Delivery O2 Flow Rate FiO2 10/26/20 06:55 99 Room Air 10/26/20 06:05 98.1 71 18 83/63 (70) 98.1 LABS Lab: Laboratory Tests Test 10/26/20 03:20 10/26/20 07:51 White Blood Count 10.3 x10^3/uL (4.0-11.0) Red Blood Count 4.66 x10^6/uL (4.30-5.70) Hemoglobin 14.9 g/dL (13.0-17.5) Hematocrit 43.9 % (39.0-53.0) Mean Corpuscular Volume 94 fL (79-100) Mean Corpuscular Hemoglobin 32 pg (25-35) Mean Corpuscular Hemoglobin Concent 34 g/dL (31-37) Red Cell Distribution Width 13.6 % (11.5-14.5) Platelet Count 238 x10^3/uL (140-400) Neutrophils (%) (Auto) 65 % (31-73) Lymphocytes (%) (Auto) 25 % (24-48) Monocytes (%) (Auto) 8 % (0-9) Eosinophils (%) (Auto) 1 % (0-3) Basophils (%) (Auto) 1 % (0-3) Neutrophils # (Auto) 6.7 x10^3/uL (1.8-7.7) Lymphocytes # (Auto) 2.6 x10^3/uL (1.0-4.8) Monocytes # (Auto) 0.8 x10^3/uL (0.0-1.1) Eosinophils # (Auto) 0.1 x10^3/uL (0.0-0.7) Basophils # (Auto) 0.1 x10^3/uL (0.0-0.2) D-Dimer (Kenyatta) 0.35 ug/mlFEU (0.00-0.50) Sodium Level 136 mmol/L (136-145) Potassium Level 4.1 mmol/L (3.5-5.1) Chloride Level 101 mmol/L (98-107) Carbon Dioxide Level 27 mmol/L (21-32) Anion Gap 8 (6-14) Blood Urea Nitrogen 16 mg/dL (8-26) Creatinine 1.5 mg/dL (0.7-1.3) H Estimated GFR (Cockcroft-Gault) 49.1 BUN/Creatinine Ratio 11 (6-20) Glucose Level 109 mg/dL (70-99) H Calcium Level 8.9 mg/dL (8.5-10.1) Total Bilirubin 0.5 mg/dL (0.2-1.0) Aspartate Amino Transferase (AST) 13 U/L (15-37) L Alanine Aminotransferase (ALT) 22 U/L (16-63) Alkaline Phosphatase 88 U/L (46-116) Troponin I Quantitative < 0.017 ng/mL (0.000-0.055) < 0.017 ng/mL (0.000-0.055) QN-Vca-D-Type Natriuretic Peptide 13 pg/mL (0-124) Total Protein 7.2 g/dL (6.4-8.2) Albumin 3.7 g/dL (3.4-5.0) Albumin/Globulin Ratio 1.1 (1.0-1.7) Laboratory Tests 10/26/20 03:20 Laboratory Tests 10/26/20 03:20 ECHOCARDIOGRAM ECHOCARDIOGRAM <Conclusion> The left ventricle is normal size. The left ventricular systolic function is normal and the ejection fraction is within normal range. LV ejection fraction is 55-60%. There is mild concentric left ventricular hypertrophy. There is no significant aortic valvular stenosis. Calculated aortic valve area is 3.98 cm2 with maximum pressure gradient of 6 mmHg and mean pressure gradient of 3 mmHg. Doppler and Color Flow revealed no significant aortic regurgitation. Doppler and Color-flow revealed trace mitral regurgitation. Doppler and Color Flow revealed trace tricuspid regurgitation with an estimated PAP of 24 mmHg. DATE: 09/01/18 1544 ASSESSMENT/PLAN ASSESSMENT/PLAN 1. Chest pain, atypical; Trop negative x2. AMI ruled out. Most probable MSK in origin 2. Hypertension; low end 3. Hyperlipidemia; statin 4. ISRA[place] vs CKD 5. Anxiety, depression, schizoaffective disorder 6. Hypothyroidism; on replacement Recommendations Lipids ASA Echo to assess LV systolic function If echo WNL, may discharge from a CV standpoint. MANOHAR HOPKINS MD 10/26/20 8859: CARDIAC CONSULT ASSESSMENT/PLAN ASSESSMENT/PLAN Patient seen and evaluated. I agree with our nurse practitioners assessment and plan above. Chest pain, atypical; Trop negative x2. No acute ischemic EKG changes. Echo with normal LV function. Continue medical treatment including aspirin. Hypertension; low end Hyperlipidemia; statin. Lab pending. ISRAEL vs CKD Anxiety, depression, schizoaffective disorder Hypothyroidism; on replacement KRISTIN SILVA APRN Oct 26, 2020 09:59 MANOHAR HOPKINS MD Oct 26, 2020 17:39
[2020-10-26] MEDS ORDERED: MAG HYDROX/ALUMINUM HYD/SIMETH 30 ML ORAL.SUSP PO PRN (10:00)
[2020-10-26] MEDS ORDERED: DULoxetine HCL 30 MG CAPSULE.DR PO SCH (10:00)
[2020-10-26] MEDS ORDERED: LIDOCAINE (700MG/PATCH) PATCH. TP PRN (10:00)
[2020-10-26] MEDS ORDERED: LIDODERM 5% TOP PRN (10:00)
[2020-10-26] MEDS ORDERED: LISINOPRIL 10 MG TABLET PO SCH (10:00)
[2020-10-26] MEDS ORDERED: POLYETHYLENE GLYCOL 3350 17 GM PACKET. PO PRN (10:00)
--- NOTE | 2020-10-26 10:26 | SNU/HH DC ---
DISCHARGE ORDERS DISCHARGE INFORMATION: FINAL DIAGNOSIS Problems Medical Problems: (1) Chest pain Status: Acute CONDITION ON DISCHARGE: Stable CODE STATUS: Code Status: Full LONG TERM: SNF STAY <30 DAYS: Yes HOSPICE: HOSPICE: No HOSPICE EVAL & TREAT: No POST DISCHARGE ORDERS: ACTIVITY ORDERS: Activity as tolerated WEIGHT BEARING STATUS: As tolerated DIET AFTER DISCHARGE: Regular CHECKS AFTER DISCHARGE: CHECKS AFTER DISCHARGE: Check blood press - daily TREATMENT/EQUIPMENT ORDERS: ADAPTIVE EQUIPMENT NEEDED: None Physical Therapy For: Evalulation/Treatment Occupational Therapy For: Evaluation/Treatment DISCHARGE MEDICATIONS: Home Meds Active Scripts Ibuprofen (IBUPROFEN) 600 Mg Tablet, 600 MG PO PRN Q6HRS PRN for PAIN, #20 TAB take with food or milk Prov:DAGO MADRID MD 10/11/17 [lidoderm 5%patch] No Conflict Check, 1 PATCH TOP PRN Q12HRS PRN for PAIN, #5 apply to area of pain, remove after 12 hours and can replace after 12 hours off. Prov:DAGO MADRID MD 10/11/17 Reported Medications Trazodone Hcl (TRAZODONE HCL) 100 Mg Tablet, 1 TAB PO QHS for scizoaffective, #30 TAB 1 Refill 10/26/20 Mag Hydrox/Aluminum Hyd/Simeth (Mylanta Maximum Strength Liq) 355 Ml Oral.susp, 30 ML PO PRN Q6HRS PRN for GERD, MISC 10/26/20 Polyethylene Glycol 3350 (MIRALAX) 17 Gm Powd.pack, 1 PACKET PO PRN Q24HRS PRN for CONSTIPATION for 2 Days, PACKET 0 Refills dissolve in water 10/26/20 [place] Carbonate (LITHIUM CARBONATE) 300 Mg Tablet.er, 1 TAB PO HS for depression, #60 TAB 10/26/20 Lisinopril (LISINOPRIL) 10 Mg Tablet, 1 TAB PO DAILY for HTN, #30 TAB 5 Refills 10/26/20 Lidocaine (Lidocaine PATCH ) 1 Each Adh..patch, 1 EACH TP PRN DAILY PRN for PAIN, PATCH REMOVE AFTER 12 HOURS 10/26/20 Levothyroxine Sodium (LEVOTHYROXINE SODIUM) 25 Mcg Tablet, 1 TAB PO DAILY for hypothyroidism, #30 TAB 5 Refills 10/26/20 Lurasidone Hcl (LATUDA) 20 Mg Tablet, 1 TAB PO DAILY for schizoaffective for 30 Days, #30 TAB 0 Refills 10/26/20 Lurasidone Hcl (LATUDA) 60 Mg Tablet, 1 TAB PO QHS for schizoaffective for 30 Days, #30 TAB 0 Refills 10/26/20 Guaifenesin (GUAIFENESIN) 400 Mg Tablet, 600 MG PO PRN Q12HR PRN for COUGH, TAB 10/26/20 Duloxetine Hcl (CYMBALTA) 30 Mg Capsule.dr, 30 MG PO BID for depression, CAP 10/26/20 Buspirone Hcl (BUSPIRONE HCL) 5 Mg Tablet, 1 TAB PO HS for insomnia, #60 TAB 2 Refills 10/26/20 Benztropine Mesylate (BENZTROPINE MESYLATE) 0.5 Mg Tablet, 1 TAB PO BID for dyskinesia, #60 TAB 10/26/20 Lorazepam (ATIVAN) 1 Mg Tablet, 1 MG PO PRN Q24HRS PRN for ABDOMINAL CRAMPS, TAB 10/26/20 Hydroxyzine Pamoate (VISTARIL) 25 Mg Capsule, 25 MG PO PRN Q4HRS PRN for ANXIETY / AGITATION, CAP 09/01/18 Magnesium Hydroxide (MILK OF MAGNESIA) 400 Mg/5 Ml Oral.susp, 30 ML PO DAILY for gerd, MISC 09/01/18 Loperamide Hcl (LOPERAMIDE) 2 Mg Tablet, 2 MG PO DAILY for diarrhea, TAB 09/01/18 Atorvastatin Calcium (ATORVASTATIN CALCIUM) 40 Mg Tablet, 40 MG PO HS for FOR CHOLESTEROL, #30 TAB 0 Refills 09/01/18 Lorazepam (ATIVAN) 1 Mg Tablet, 1 MG PO BID for schizoaffective disorder, TAB 09/01/18 Zolpidem Tartrate (AMBIEN) 5 Mg Tablet, 5 MG PO HS for insomnia, TAB 0 Refills 09/01/18 Discontinued Reported Medications Thiothixene (THIOTHIXENE) 5 Mg Capsule, 5 MG PO HS for schizoaffective disorder, CAP 09/01/18 Thiothixene (THIOTHIXENE) 10 Mg Capsule, 10 MG PO DAILY for schizoaffective disorder, CAP 09/01/18 Ketoconazole (KETOCONAZOLE) 120 Ml Shampoo, 120 ML TP TWICE WEEKLY for psoriasis, EACH 09/01/18 NIKO MINOR III DO Oct 26, 2020 10:26
[2020-10-26] MEDS ORDERED: MAGNESIUM HYDROXIDE 2,400 MG/30 ML ORAL.SUSP. PO SCH (10:30)
[2020-10-26] MEDS ORDERED: BENZTROPINE MESYLATE 1 MG TABLET. PO SCH (10:30)
[2020-10-26] MEDS ORDERED: hydrOXYzine 25 MG TABLET PO PRN (10:30)
[2020-10-26] MEDS ORDERED: IBUPROFEN 200 MG TABLET. PO PRN (10:30)
[2020-10-26] MEDS ORDERED: LEVOTHYROXINE 25 MCG TABLET. PO SCH (10:30)
[2020-10-26 11:00] VITALS: BP 98/70
[2020-10-26] MEDS ORDERED: LOPERAMIDE 2 MG CAPSULE PO SCH (11:00)
[2020-10-26] MEDS ORDERED: LURASIDONE 40 MG TABLET. PO SCH ×2 (11:00→21:00)
--- NOTE | 2020-10-26 12:09 | SSS ---
ADMIT DATE: 10/26/2020 CHIEF COMPLAINT: Chest pain. HISTORY OF PRESENT ILLNESS: The patient is a pleasant middle-aged male who resides at the psychiatric facility in [place]. He states he has schizophrenia. 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 Basically now he presented with chest pain. He really does not have much risk factors other than blood pressure and hyperlipidemia, but does not smoke. He does not have diabetes, but it does run in his family. He does have 22 medications he takes. His initial workup in the ER was negative; however, to be safe, we admitted him overnight for observation. This morning, his troponins are negative. I considered to discharge him, but he really wants to see Cardiology. We are going to go ahead and consult Cardiology and if they agree, we are going to let him go this afternoon. PAST MEDICAL HISTORY: Psychiatric issues, schizophrenia, hyperlipidemia, polypharmacy, anxiety, hypertension, constipation, insomnia, psoriasis, dental surgery, hypothyroidism. ALLERGIES: None. FAMILY HISTORY: Diabetes. SOCIAL HISTORY: He resides at a psychiatric facility in [place] for the past decade or two. 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 He does not drink, smoke or take drugs. MEDICATIONS: Reviewed, please refer to the MRAD. REVIEW OF SYSTEMS: GENERAL: No history of weight change, weakness or fevers. SKIN: No bruising, hair changes or rashes. EYES: No blurred, double or loss of vision. NOSE AND THROAT: No history of nosebleeds, hoarseness or sore throat. HEART: No history of palpitations, chest pain or shortness of breath on exertion. LUNGS: Denies cough, hemoptysis, wheezing or shortness of breath. GASTROINTESTINAL: Denies changes in appetite, nausea, vomiting, diarrhea or constipation. GENITOURINARY: No history of frequency, urgency, hesitancy or nocturia. NEUROLOGIC: Denies history of numbness, tingling, tremor or weakness. PSYCHIATRIC: No history of panic, anxiety or depression. ENDOCRINE: No history of heat or cold intolerance, polyuria or polydipsia. EXTREMITIES: Denies muscle weakness, joint pain, pain on walking or stiffness. PHYSICAL EXAMINATION: VITALS: Within normal limits and are stable. GENERAL: No apparent distress. Alert and oriented. HEENT: Normal cephalic atraumatic, external auditory canals are patent. Eyes: Extraocular muscles are intact, pupils are equally round and reactive to light and accommodation. MUSCULOSKELETAL: Well developed, well nourished, good range of motion. ENDOCRINE: No thyromegaly was palpated. LYMPHATICS: No cervical chain or axillary nodes were noted. HEMATOPOIETIC: No bruising. NECK: Supple, no JVD, no thyromegaly was noted. LUNGS: Clear to auscultation in all lung robin without rhonchi or wheezing. HEART: RRR, S1, S2 present. Peripheral pulses intact, no obvious murmurs were noted. ABDOMEN: Soft, nontender. Positive bowel sounds no organomegaly, normal bowel sounds. EXTREMITIES: Without any cyanosis, clubbing, or edema. Pedal pulses intact, Homans sign is negative. NEUROLOGIC: Normal speech, normal tone. A and O x 3, moves all extremities, no obvious focal deficits. PSYCHIATRIC: Normal affect, normal mood. Stable. SKIN: No ulcerations or rashes, good skin turgor, no jaundice. VASCULAR: Good capillary refill, neurovascular bundle appears to be intact. LABORATORY DATA: Troponin is 0, we repeated it and remains 0. Electrolytes are normal. D-dimer is 0.35. EKG shows sinus rhythm. Chest x-ray is normal. ASSESSMENT AND PLAN: Probable atypical chest pain, but the patient would really like to see Cardiology before he goes. We will go ahead and consult Cardiology. Continue our cardiac monitoring, home meds, deep venous thrombosis prophylaxis. Full code. P.r.n. analgesics. If he is doing well this afternoon, we hope to discharge. DISPOSITION: Home. ACTIVITY: As tolerated. DIET: Low sodium. MEDICATIONS: Please see the MRAD. I basically just resumed his home medications, which include atorvastatin 40 a day, lisinopril 10 every day, ibuprofen 600 q.6 hours p.r.n., Cymbalta 30 b.i.d., trazodone 100 every day, Latuda 60 mg at bedtime and 20 mg in the morning, Ativan 1 b.i.d., BuSpar 5 mg a day, Vistaril 25 mg p.r.n., Ambien 5 at bedtime, lithium 300 at bedtime, benztropine 0.5 b.i.d., guaifenesin p.r.n., milk of mag p.r.n., loperamide 2 mg p.o. every day, MiraLax p.r.n., Synthroid 25 mcg p.o. every day, lidocaine patches. TOTAL TIME: 32 minutes. NIKO MINOR DO DR: RAJIV/cecleia JOB#: [id number] / [id number]
--- NOTE | 2020-10-26 12:42 | NUR ---
SS following for discharge planning. SS reviewed pt chart and discussed with pt RN. Pt is LTC resident from [facility], ; fax [phone]. Cardiology consulted. ECHO ordered. Possible discharge back to facility today if Cardiology signs off. Discharge orders received. SS phoned and faxed discharge orders and clinical to [facility]. SS will continue to follow for discharge planning.
[2020-10-26] MEDS ORDERED: ASPIRIN ENTERIC COATED 81 MG TABLET.DR. PO SCH (14:00)
[2020-10-26 15:00] VITALS: BP 106/67
[2020-10-26] MEDS ORDERED: ASPI-886 PO (15:29)
--- NOTE | 2020-10-26 15:34 | NUR ---
SS following up with discharge planning. Cardiology signed off. Pt will discharge today and return to [facility], ; fax [phone], at 1630 via [facility]. [facility] unable to provide transportation. Pt and pt's RN notified.
--- NOTE | 2020-10-26 16:30 | NUR ---
Discharge Note: ERICKA TRISTAN 2 [facility] Discharge instructions and discharge home medications reviewed with Other facility and a copy given. All questions have been answered and understanding verbalized. The following instructions and handouts were given: discharge instructions, med list, CP education. Discontinued lines and drains: Peripheral IV intact. Patient discharged to [facility] with [facility] via [facility] at 1630.
--- NOTE | 2020-10-26 17:00 | CARD ---
MR#: [id number] Date of Study: 10/26/2020 Ordering Physician: KRISTIN SILVA, Referring Physician: KRISTIN SILVA, Tech: Salome Aldridge, [facility] APPROVED REPORT EXAM: Two-dimensional and M-mode echocardiogram with Doppler and color Doppler. Other Information Quality : GoodHR: 67bpm INDICATION Chest Pain RISK FACTORS Hypertension Hyperlipidemia 2D DIMENSIONS RVDd2.8 (2.9-3.5cm)Left Atrium(2D)3.0 (1.6-4.0cm) IVSd1.0 (0.7-1.1cm)Aortic Root(2D)3.5 (2.0-3.7cm) LVDd5.2 (3.9-5.9cm)LVOT Diameter2.3 (1.8-2.4cm) PWd1.0 (0.7-1.1cm)LVDs3.6 (2.5-4.0cm) FS (%) 30.3 %SV75.3 ml LVEF(%)57.3 (>50%) Aortic Valve AoV Peak German.126.7cm/sAoV VTI31.0cm AO Peak GR.6.4mmHgLVOT Peak German.102.8cm/s AO Mean GR.4mmHgAVA (VMAX)3.25cm2 Mitral Valve MV E Bnwfjgtb72.2cm/sMV DECEL [id number] MV A Qpupdrse54.3cm/sE/A Ratio0.9 Pulmonary Valve PV Peak Wfgnhtnj92.0cm/s Pulmonary Vein S1 Npvsikbg97.4cm/sD2 Rwzertjo56.0cm/s PVa [id number] LEFT VENTRICLE The left ventricle is normal size. There is normal left ventricular wall thickness. The left ventricu lar systolic function is normal and the ejection fraction is within normal range. The Ejection Fracti on is 50-55%. There is normal LV segmental wall motion. The left ventricular diastolic function and f illing is normal for age. RIGHT VENTRICLE The right ventricle is normal size. There is normal right ventricular wall thickness. The right ventr icular systolic function is normal. ATRIA The left atrium size is normal. The right atrium size is normal. The interatrial septum is intact wit h no evidence for an atrial septal defect or patent foramen ovale as noted on 2-D or Doppler imaging. AORTIC VALVE The aortic valve is normal in structure and function. Doppler and Color Flow revealed no significant aortic regurgitation. There is no significant aortic valvular stenosis. Calculated aortic valve area is 3.4 cm2 with maximum pressure gradient of 6 mmHg and mean pressure gradient of 4 mmHg. MITRAL VALVE The mitral valve is normal in structure and function. There is no evidence of mitral valve prolapse. There is no mitral valve stenosis. Doppler and Color-flow revealed trace mitral regurgitation. TRICUSPID VALVE The tricuspid valve is normal in structure and function. Doppler and Color Flow revealed trace tricus pid regurgitation. There is no tricuspid valve stenosis. PULMONIC VALVE The pulmonic valve is not well visualized. Doppler and Color Flow revealed no pulmonic valvular regur gitation. There is no pulmonic valvular stenosis. GREAT VESSELS The aortic root is normal in size. The IVC is normal in size and collapses >50% with inspiration. PERICARDIAL EFFUSION There is no evidence of significant pericardial effusion. Critical Notification Critical Value: No <Conclusion> The left ventricular systolic function is normal and the ejection fraction is within normal range. Th e Ejection Fraction is 50-55%. There is normal LV segmental wall motion. Signed by : Timmy Mcknight, Electronically Approved : 10/26/2020 16:59:50
[2020-10-26] MEDS ORDERED: traZODone 100 MG TABLET. PO SCH (21:00)
[2020-10-26] MEDS ORDERED: busPIRone 5 MG TABLET. PO SCH (21:00)
[2020-10-26] MEDS ORDERED: ATORVASTATIN CALCIUM 40 MG TABLET. PO SCH (21:00)
[2020-10-26] MEDS ORDERED: LITHIUM CARBONATE ER 300 MG TABLET.ER PO SCH (21:00)
[2020-10-26] MEDS ORDERED: ZOLPIDEM 5 MG TABLET. PO SCH (21:00)
== END 2020-10-26 16:30 ==
LOC: ER 02:53 → 2 SOUTH 04:30
PROVIDERS: ADMIT Internal Medicine; ATTEND Internal Medicine
DX: R07.89 Other chest pain (principal); I10 Essential (primary) hypertension; E03.9 Hypothyroidism, unspecified; E78.5 Hyperlipidemia, unspecified; F25.9 Schizoaffective disorder, unspecified; F32.9 Major depressive disorder, single episode, unspecified; F41.9 Anxiety disorder, unspecified; L40.9 Psoriasis, unspecified; G47.00 Insomnia, unspecified; K21.9 Gastro-esophageal reflux disease without esophagitis; K59.00 Constipation, unspecified; Z98.890 Other specified postprocedural states; Z79.82 Long term (current) use of aspirin
CPT/HCPCS: 36415; 71045; 80053; 80061; 83880; 84484; 85025; 85379; 93005; 93306; 96372; 99285; G0378; J2270; G0379

== ENCOUNTER 2020-11-23 19:50 | Emergency (ER) | payer MEDICARE, MEDICAID ==
[~2020-11-23] VITALS: Ht 182.9 cm; Wt 100.9 kg
[~2020-11-23 19:50] MED LIST changes: +ASPI-886 PO; +BENZ0.5T32 PO; +BUSP5TAB PO; +DULO30CA2 PO; +GUAI400T78 PO; +LEVO25TA4 PO; +LIDO700A21 TP; +LISI10TA16 PO; +LITH300T30 PO; +LURA20TA PO; +LURA60TA PO; +MAG-115 PO; +POLY17PO29 PO; +TRAZ-123 PO
[2020-11-23] MEDS ORDERED: ASPIRIN CHEWABLE 81 MG TABLET. PO ONE (20:15)
[2020-11-23] MEDS ORDERED: IV NORMAL SALINE 1000ML BAG 1,000 ML IV SCH (20:15)
[2020-11-23 20:25] LABS: BASO # 0.1 x10^3/uL (0.0-0.2); BASO % 1 % (0-3); EOS # 0.1 x10^3/uL (0.0-0.7); EOS % 1 % (0-3); HEMATOCRIT 39.3 % (39.0-53.0); HEMOGLOBIN 13.7 g/dL (13.0-17.5); LYMPH # 1.6 x10^3/uL (1.0-4.8); LYMPH % 14 % (24-48); MEAN CORPUSCULAR HEMOGLOBIN 32 pg (25-35); MEAN CORPUSCULAR HGB CONC 35 g/dL (31-37); MEAN CORPUSCULAR VOLUME 92 fL (79-100); MONO # 0.9 x10^3/uL (0.0-1.1); MONO % 8 % (0-9); NEUT % 77 % (31-73); PLATELET COUNT 252 x10^3/uL (140-400); RED BLOOD COUNT 4.27 x10^6/uL (4.30-5.70); WHITE BLOOD COUNT 11.6 x10^3/uL (4.0-11.0)
[2020-11-23 20:35] LABS: CALCIUM 9.2 mg/dL (8.5-10.1); CREATININE 1.7 mg/dL (0.7-1.3); GFR 42.5; POTASSIUM 3.9 mmol/L (3.5-5.1)
--- NOTE | 2020-11-23 20:40 | EKG ---
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
[2020-11-23 20:41] LABS: ALBUMIN 3.6 g/dL (3.4-5.0); ALBUMIN/GLOBULIN RATIO 1.2 (1.0-1.7); MAGNESIUM 1.9 mg/dL (1.8-2.4); TOTAL BILIRUBIN 0.3 mg/dL (0.2-1.0); TOTAL PROTEIN 6.5 g/dL (6.4-8.2)
--- NOTE | 2020-11-23 21:02 | RAD ---
EXAM: Chest, single view. HISTORY: Shortness of breath. COMPARISON: 10/26/2020 FINDINGS: A frontal view of the chest is obtained. There is no infiltrate, protrusion or pneumothorax . The heart is normal in size. IMPRESSION: No acute pulmonary finding. Electronically signed by: Kaitlyn Gentile MD (11/23/2020 9:00 PM) [facility]
[2020-11-23 21:23] LABS: BILIRUBIN,URINE NEGATIVE (NEG); CLARITY,URINE CLEAR; COLOR,URINE YELLOW; NITRITE,URINE NEGATIVE (NEG); PROTEIN,URINE NEGATIVE (NEG-TRACE)
[2020-11-23 21:31] LABS: BACTERIA,URINE 0 /HPF (0-FEW); HYALINE CASTS, URINE MANY /HPF; RBC,URINE 0 /HPF (0-2); WBC,URINE 0 /HPF (0-4)
--- NOTE | 2020-11-23 22:36 | EKG ---
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
[2020-11-23 23:30] LABS: BARBITURATES NEG (NEG); BENZODIAZEPINES NEG (NEG); CANNABINOIDS NEG (NEG); COCAINE NEG (NEG); METHADONE NEG (NEG); OPIATES NEG (NEG); PHENCYCLIDINE NEG (NEG)
[2020-11-23 23:31] LABS: AMPHETAMINE/METHAMPHETAMINE NEG (NEG)
--- NOTE | 2020-11-23 23:55 | EKG ---
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
--- NOTE | 2020-11-24 00:07 | PHYS DOC ---
Past Medical History Past Medical History: Depression, GERD, Hypertension, Hypothyroid, Schizophrenia Additional Past Medical Histor: PSORIASIS, INSOMNIA, SI Past Surgical History: Other Additional Past Surgical Histo: DENTAL SX Smoking Status: Never Smoker Alcohol Use: None Drug Use: None Adult General Chief Complaint Chief Complaint: ANXIETY/PANIC ATTACK [facility] HPI Patient is a 50 year old male with a past medical history including hypertension, hypothyroidism, schizophrenia depression now presents emergency department complaining of new onset of anxiety attacks and anxiety. Patient states that approximately 4 hours prior to arrival he started feeling a sensation of impending doom and feeling like he was making 1 of hurting self. Patient does have a suicidal ideation with a plan. Denies any fever, chills, nausea or vomiting. Currently denies any chest pain, cough, dizziness or lightheadedness Review of Systems Review of Systems Constitutional: Denies fever or chills [] Eyes: Denies change in visual acuity, redness, or eye pain [] HENT: Denies nasal congestion or sore throat [] Respiratory: Denies cough or shortness of breath [] Cardiovascular: No additional information not addressed in HPI [] GI: Denies abdominal pain, nausea, vomiting, bloody stools or diarrhea [] : Denies dysuria or hematuria [] Musculoskeletal: Denies back pain or joint pain [] Integument: Denies rash or skin lesions [] Neurologic: Denies headache, focal weakness or sensory changes [] Endocrine: Denies polyuria or polydipsia [] All other systems were reviewed and found to be within normal limits, except as documented in this note. Current Medications Current Medications Current Medications Medications (Trade) Dose Ordered Sig/Jordan Start Time Stop Time Status Last Admin Dose Admin Aspirin (Aspirin Chewable) 324 mg 1X ONCE 11/23/20 20:15 11/23/20 20:18 DC 11/23/20 20:28 324 MG Lorazepam (Ativan Inj) 1 mg 1X ONCE 11/23/20 20:15 11/23/20 20:18 DC 11/23/20 20:29 1 MG Sodium Chloride 1,000 ml @ 1,000 mls/hr Q1H 11/23/20 20:15 11/23/20 21:14 DC 11/23/20 20:29 1,000 MLS/HR Allergies Allergies Allergies Coded Allergies Type Severity Reaction Last Updated Verified No Known Drug Allergies 10/11/17 No Physical Exam Physical Exam Constitutional: Well developed, well nourished, no acute distress, non-toxic appearance. [] HENT: Normocephalic, atraumatic, bilateral external ears normal, oropharynx moist, no oral exudates, nose normal. [] Eyes: PERRLA, EOMI, conjunctiva normal, no discharge. [] Neck: Normal range of motion, no tenderness, supple, no stridor. [] Cardiovascular:Heart rate regular rhythm, no murmur [] Lungs & Thorax: Bilateral breath sounds clear to auscultation [] Abdomen: Bowel sounds normal, soft, no tenderness, no masses, no pulsatile masses. [] Skin: Warm, dry, no erythema, no rash. [] Back: No tenderness, no CVA tenderness. [] Extremities: No tenderness, no cyanosis, no clubbing, ROM intact, no edema. [] Neurologic: Alert and oriented X 3, normal motor function, normal sensory function, no focal deficits noted. [] Psychologic: Affect normal, judgement normal, mood normal. [] Current Patient Data Vital Signs Vital Signs Date Time Temp Pulse Resp B/P (MAP) Pulse Ox O2 Delivery O2 Flow Rate FiO2 11/24/20 04:30 16 120/69 (86) 89 Room Air 11/24/20 03:30 89 11/23/20 20:30 98.5 98.5 Lab Values Laboratory Tests Test 11/23/20 20:15 11/23/20 21:11 11/23/20 22:24 11/24/20 00:15 White Blood Count 11.6 x10^3/uL (4.0-11.0) H Red Blood Count 4.27 x10^6/uL (4.30-5.70) L Hemoglobin 13.7 g/dL (13.0-17.5) Hematocrit 39.3 % (39.0-53.0) Mean Corpuscular Volume 92 fL (79-100) Mean Corpuscular Hemoglobin 32 pg (25-35) Mean Corpuscular Hemoglobin Concent 35 g/dL (31-37) Red Cell Distribution Width 14.0 % (11.5-14.5) Platelet Count 252 x10^3/uL (140-400) Neutrophils (%) (Auto) 77 % (31-73) H Lymphocytes (%) (Auto) 14 % (24-48) L Monocytes (%) (Auto) 8 % (0-9) Eosinophils (%) (Auto) 1 % (0-3) Basophils (%) (Auto) 1 % (0-3) Neutrophils # (Auto) 9.0 x10^3/uL (1.8-7.7) H Lymphocytes # (Auto) 1.6 x10^3/uL (1.0-4.8) Monocytes # (Auto) 0.9 x10^3/uL (0.0-1.1) Eosinophils # (Auto) 0.1 x10^3/uL (0.0-0.7) Basophils # (Auto) 0.1 x10^3/uL (0.0-0.2) Sodium Level 143 mmol/L (136-145) Potassium Level 3.9 mmol/L (3.5-5.1) Chloride Level 106 mmol/L (98-107) Carbon Dioxide Level 23 mmol/L (21-32) Anion Gap 14 (6-14) Blood Urea Nitrogen 15 mg/dL (8-26) Creatinine 1.7 mg/dL (0.7-1.3) H Estimated GFR (Cockcroft-Gault) 42.5 BUN/Creatinine Ratio 9 (6-20) Glucose Level 125 mg/dL (70-99) H Calcium Level 9.2 mg/dL (8.5-10.1) Magnesium Level 1.9 mg/dL (1.8-2.4) Total Bilirubin 0.3 mg/dL (0.2-1.0) Aspartate Amino Transferase (AST) 21 U/L (15-37) Alanine Aminotransferase (ALT) 31 U/L (16-63) Alkaline Phosphatase 75 U/L (46-116) Troponin I Quantitative < 0.017 ng/mL (0.000-0.055) < 0.017 ng/mL (0.000-0.055) Total Protein 6.5 g/dL (6.4-8.2) Albumin 3.6 g/dL (3.4-5.0) Albumin/Globulin Ratio 1.2 (1.0-1.7) Lipase 97 U/L (73-393) Urine Collection Type Unknown Urine Color Yellow Urine Clarity Clear Urine pH 8.0 (<5.0-8.0) Urine Specific [place] 1.015 (1.000-1.030) Urine Protein Negative mg/dL (NEG-TRACE) Urine Glucose (UA) Negative mg/dL (NEG) Urine Ketones (Stick) Negative mg/dL (NEG) Urine Blood Negative (NEG) Urine Nitrite Negative (NEG) Urine Bilirubin Negative (NEG) Urine Urobilinogen Dipstick 1.0 mg/dL (0.2 mg/dL) Urine Leukocyte Esterase Negative (NEG) Urine RBC 0 /HPF (0-2) Urine WBC 0 /HPF (0-4) Urine Squamous Epithelial Cells Occ /LPF Urine Bacteria 0 /HPF (0-FEW) Urine Hyaline Casts Many /HPF Urine Opiates Screen Neg (NEG) Urine Methadone Screen Neg (NEG) Urine Barbiturates Neg (NEG) Urine Phencyclidine Screen Neg (NEG) Urine Amphetamine/Methamphetamine Neg (NEG) Urine Benzodiazepines Screen Neg (NEG) Urine Cocaine Screen Neg (NEG) Urine Cannabinoids Screen Neg (NEG) Urine Ethyl Alcohol Neg (NEG) SARS-CoV-2 Antigen (Rapid) Negative (NEGATIVE) Test 11/24/20 02:23 Troponin I Quantitative < 0.017 ng/mL (0.000-0.055) Laboratory Tests 11/23/20 20:15 Laboratory Tests 11/23/20 20:15 EKG EKG [] Radiology/Procedures Radiology/Procedures [] Course & Med Decision Making Course & Med Decision Making Pertinent Labs and Imaging studies reviewed. (See chart for details) 50-year-old male presenting the emergency department for new onset of anxiety attacks in suicidal ideation. Will obtain basic work-up to make sure there is no other significant underlying etiology and obtain a psychiatric consultation. PET team evaluation completed and we are attempting to obtain placement at [facility]. Awaiting final determination. 0500 - Patient accepted at inpatient psych at [facility]. Transfer team here to take the patient. Patient appears hemodynamically stable at this Dragon Disclaimer Dragon Disclaimer This electronic medical record was generated, in whole or in part, using a voice recognition dictation system. Departure Departure Impression: Primary Impression: Suicidal ideations Disposition: [facility] Condition: STABLE Referrals: KORY BAIRES (PCP) RODOLFO MORALES MD Nov 24, 2020 00:07
[2020-11-24 04:30] VITALS: BP 120/69
== END 2020-11-24 05:00 ==
LOC: ER 19:50
DX: R45.851 Suicidal ideations (principal); Z20.822 Contact with and (suspected) exposure to COVID-19; K21.9 Gastro-esophageal reflux disease without esophagitis; I10 Essential (primary) hypertension; E03.9 Hypothyroidism, unspecified; F20.9 Schizophrenia, unspecified; F32.9 Major depressive disorder, single episode, unspecified; Z79.899 Other long term (current) drug therapy
CPT/HCPCS: 36415; 71045; 80053; 80307; 81001; 83690; 83735; 84484; 85025; 87426; 93005; 96361; 96374; 99285; C9803; J2060; J7030; U0003; U0005

== ENCOUNTER 2021-02-05 20:57 | Emergency (ER) | payer MEDICARE, MEDICAID ==
[~2021-02-05] VITALS: Ht 185.4 cm; Wt 100.0 kg
[~2021-02-05 20:57] MED LIST changes: +ACET325T21 PO; +BENZ1TAB5 PO; +BUSP10TA PO; +DULO60CA6 PO; +HYDR50CA2 PO; +LISI-130 PO; +LORA2ORA7 PO; +LURA80TA PO
[2021-02-05] MEDS ORDERED: LIDOCAINE/EPI/TETRACAINE TOPICAL GEL 3 ML. TP ONE ×2 (21:10→21:15)
--- NOTE | 2021-02-05 21:36 | ED.ADGEN ---
Past Medical History Past Medical History: Anxiety, Depression, GERD, High Cholesterol, Hypert ension, Hypothyroid, Seizure, Schizophrenia Additional Past Medical Histor: PSORIASIS, INSOMNIA, SI Past Surgical History: Other Additional Past Surgical Histo: DENTAL SX Smoking Status: Never Smoker Alcohol Use: None Drug Use: None General Adult EDM: Chief Complaint: MECHANICAL FALL HPI: HPI: Patient is a 50 year old male coming in from nursing facility for a fall. Patient was found next to his bed and thinks he fell out of bed. Does not remember the fall and thinks he might have been knocked out. Is unsure if he hit anything. Last tetanus more than 5 years ago. Otherwise has been well and is not on blood thinners. Review of Systems: Review of Systems: All other systems within normal limits except for as noted in the HPI Current Medications: Current Medications Medications (Trade) Dose Ordered Sig/Jordan Start Time Stop Time Status Last Admin Dose Admin Diphtheria/ Tetanus/Acell Pertussis (ADACEL TDap SYRINGE) 0.5 ml ONCE ONCE 02/05/21 21:45 02/05/21 21:46 DC 02/05/21 21:52 0.5 ML Tetracaine/ Epinephrine/ Lidocaine (Let ([id number]) Gel) 3 ml STK-MED ONCE 02/05/21 21:10 02/05/21 21:10 DC Allergies: Allergies: Allergies Coded Allergies Type Severity Reaction Last Updated Verified No Known Drug Allergies 10/11/17 No Physical Exam: PE: Constitutional: Well developed, well nourished, no acute distress, non-toxic appearance. [] HENT: Normocephalic, left upper occipital hematoma, bilateral external ears normal, nose normal. [] Eyes: PERRLA, conjunctiva normal, no discharge. [] Neck: No rigidity, supple, no stridor. [] Cardiovascular: Regular rate and rhythm, brisk cap refill [] Lungs & Thorax: Non labored symmetric respirations, no tachypnea or respiratory distress [] Abdomen: Soft, nondistended. Skin: Warm, dry, no erythema, no rash. 3 cm jagged laceration to left upper occiput. [] Back: Unremarkable Extremities: No deformities, range of motion grossly intact, no lower extremity edema [] Neurologic: Alert and oriented X 3, no focal deficits noted. [] Psychologic: Affect normal, judgement normal, mood normal. [] Current Patient Data: Vital Signs: Vital Signs Date Time Temp Pulse Resp B/P (MAP) Pulse Ox O2 Delivery O2 Flow Rate FiO2 02/05/21 21:00 98.2 70 20 130/78 (95) 99 Room Air 98.2 EKG: EKG: [] Heart Score: C/O Chest Pain: No Risk Factors: Risk Factors: DM, Current or recent (<one month) smoker, HTN, HLP, family history of CAD, obesity. Risk Scores: Score 0 - 3: 2.5% MACE over next 6 weeks - Discharge Home Score 4 - 6: 20.3% MACE over next 6 weeks - Admit for Clinical Observation Score 7 - 10: 72.7% MACE over next 6 weeks - Early Invasive Strategies Radiology/Procedures: Radiology/Procedures: [] Course & Med Decision Making: Course & Med Decision Making Pertinent Labs and Imaging studies reviewed. (See chart for details) [] Dragon Disclaimer: Dragon Disclaimer: This electronic medical record was generated, in whole or in part, using a voice recognition dictation system. Departure Departure Impression: Primary Impression: Fall Additional Impression: Scalp laceration Disposition: HOME / SELF CARE / HOMELESS Condition: STABLE Referrals: KORY BAIRES (PCP) Patient Instructions: Staple Wound Closure, [id number] Additional Instructions: Return to your primary care or emergency department for staple removal in 10 to 14 days. Problem Qualifiers ROSA WEISS MD Feb 05, 2021 21:36
[2021-02-05] MEDS ORDERED: DIPH,PERTUSS(ACELL),TET VAC/PF 0.5 ML SYRINGE. VAX IM ONE (21:45)
--- NOTE | 2021-02-05 22:02 | RAD ---
Exam Date: 02/05/2021 9:[address] HEAD/BRAIN WO Indication: Reason: fall, head injury / Spl. Instructions: / History: . TECHNIQUE: Head CT was performed without intravenous contrast. One or more of the following dose re duction techniques were utilized: *Automated exposure control (AEC) *Adjustment of mA and/or kV according to patient size *Use of iterative reconstruction technique *CT scan done according to ALARA, or ALARA/IMAGE GENTLY FINDINGS: There is left posterior parietal scalp soft tissue swelling and hematoma without depressed skull frac ture. The ventricles and sulci are normal for the patient's stated age. There is no evidence of acute int racranial hemorrhage, extra-axial collection, mass effect, midline shift, or acute territorial infarc t. The visualized mastoid air cells and orbits are normal in appearance. There is partial opacificati on of the paranasal sinuses. IMPRESSION: Left posterior parietal scalp soft tissue swelling and hematoma without depressed skull fracture. No evidence for acute intracranial abnormality. Electronically signed by: Anup James MD (02/05/2021 9:59 PM) [facility]
[2021-02-05 23:30] VITALS: BP 151/104
== END 2021-02-05 23:55 | disposition home or self-care (01) ==
LOC: ER 20:57
DX: S01.01XA Laceration without foreign body of scalp, initial encounter (principal); E78.00 Pure hypercholesterolemia, unspecified; K21.9 Gastro-esophageal reflux disease without esophagitis; I10 Essential (primary) hypertension; E03.9 Hypothyroidism, unspecified; F20.9 Schizophrenia, unspecified; W06.XXXA Fall from bed, initial encounter; Y93.89 Activity, other specified; Y92.89 Other specified places as the place of occurrence of the external cause; Y99.8 Other external cause status
CPT/HCPCS: 12002; 70450; 90471; 90715; 99285-25